=== PATIENT | female | born 1940 | race American Indian/Alaskan Native ===

== ENCOUNTER 2018-08-01 08:12 | Observation (INO) | payer OTHER ==
--- NOTE | 2018-08-01 08:54 | C.PDOC ---
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 SYMPTOMS DEVELOPED ONSET WHILE SLEEPING, PATIENT STATES WORSE WITH LAYING DOWN. PATIENT DESCRIBES CP SHARP. GIVEN "SOMETHING UNDER MY TONGUE" BY EMS WITH MILD IMPROVEMENT. PATIENT STATES NOW FEELS BETTER SITTING UPRIGHT AND WITH O2. PATIENT IS COMPLIANT W "WATER PILLS". DENIES INCREASED SWELLING, FEVER OR ANY OTHER SYMPTOMS AT THIS TIME. EXAM OBESE MILD DIST NONTOXIC LUNGS B/L BASILAR RALES RETRACTION SPEAKING FULL SENTENCES 1+PITTING EDEMA CV RRR REMAINDER NEG Time Seen by Provider: 08/01/18 08:43 Chief Complaint (Nursing): Shortness Of Breath History Per: Patient, EMS History/Exam Limitations: no limitations Onset/Duration Of Symptoms: Hrs Current Symptoms Are (Timing): Still Present Past Medical History Reviewed: Historical Data, Nursing Documentation, Vital Signs Vital Signs: Last Vital Signs Temp 98.9 F 08/01/18 08:38 Pulse 90 08/01/18 08:38 Resp 26 H 08/01/18 08:38 BP 226/108 H 08/01/18 08:38 Pulse Ox 96 08/01/18 08:38 - Medical History PMH: CHF, HTN Surgical History: Pacemaker - [facility] Procedures SKIN INCIS & FB REMOVAL (07/29/99) Family History: States: No Known Family Hx - Social History Hx Alcohol Use: No Hx Substance Use: No Review Of Systems Constitutional: Negative for: Fever, Chills Cardiovascular: Positive for: Chest Pain Respiratory: Positive for: Shortness of Breath. Negative for: Cough Gastrointestinal: Negative for: Nausea, Vomiting Musculoskeletal: Negative for: Leg Pain Skin: Negative for: Rash Physical Exam - Physical Exam Appears: Non-toxic, Other (Obese, In mild distress) Skin: Warm, Dry Head: Atraumatic Eye(s): bilateral: Normal Inspection Oral Mucosa: Moist Neck: Normal ROM, Supple Cardiovascular: Rhythm Regular Respiratory: Rales (bilateral basilar), No Rhonchi, No Wheezing, Other (retractions) Gastrointestinal/Abdominal: Soft, No Tenderness, No Guarding, No Rebound Extremity: Normal ROM, Pedal Edema (+1 pitting), No Calf Tenderness, No Deformity Neurological/Psych: Oriented x3, Normal Speech (speaking in full sentences), Normal Cognition ED Course And Treatment - Laboratory Results Result Diagrams: 08/01/18 09:04 08/01/18 09:04 ECG: Interpreted By Me ECG Rhythm: 1st Degree HB, PVC Rate From EC (BPM) O2 Sat by Pulse Oximetry: 96 (RA) Pulse Ox Interpretation: Normal - Radiology CXR: Interpreted by Me CXR Interpretation: Yes: Other (chf) Progress - Re-Evaluation Re-evaluation Note: 08/01/18 10:30 STABLE ON [address]M. DW DR HOROWITZ WILL ADMIT - Data Reviewed Data Reviewed: Lab, Diagnostic imaging, EKG, Old records - Critical Care Citical Care: Excluding Proc Time Critical Care Time: 90 minutes Disposition Counseled Patient/Family Regarding: Studies Performed, Diagnosis - Disposition Disposition: HOSPITALIZED Disposition Time: 10:31 Condition: STABLE Forms: [facility] (Macedonian) - POA Present On Arrival: None, Poor Glycemic Control - Clinical Impression Clinical Impression: Acute exacerbation of CHF (congestive heart failure) - Scribe Statement The provider has reviewed the documentation as recorded by the Scribe Yanely Guadarrama All medical record entries made by the Scribe were at my direction and pe rsonally dictated by me. I have reviewed the chart and agree that the record accurately reflects my personal performance of the history, physical exam, medical decision making, and the department course for this patient. I have also personally directed, reviewed, and agree with the discharge instructions and disposition.
[2018-08-01] MEDS ORDERED: Aspirin 325 mg EC Tablets PO STA (08:55)
[2018-08-01] MEDS ORDERED: Nitroglycerin 2% Ointment Foilpak UD TOP STA (08:55)
[2018-08-01] MEDS ORDERED: Albuterol 0.083% Inhal Sol (2.5 mg/3 mL) UD INH STA (08:58)
[2018-08-01] MEDS ORDERED: Aspirin 325 mg EC Tablets PO ONE (09:08)
[2018-08-01] MEDS ORDERED: Nitroglycerin 2% Ointment Foilpak UD TOP ONE (09:08)
[2018-08-01 09:12] LABS: BASO % 0.7 % (0.0-2.0); EOS % 0.6 % (0.0-4.0); HEMOGLOBIN 11.9 g/dL (11.0-16.0); LYMPH # 1.3 K/uL (1.0-4.3); MEAN CORPUSCULAR HEMOGLOBIN 31.2 pg (27.0-31.0); MEAN CORPUSCULAR HGB CONC 32.9 g/dL (33.0-37.0); MEAN PLATELET VOLUME 9.6 fL (7.2-11.7); MONO # 0.6 K/uL (0.0-0.8); MONO % 8.7 % (0.0-10.0); NEUT # 4.7 K/uL (1.8-7.0); NRBC % 0.1 % (0.0-2.0); RBC 3.82 Mil/uL (3.80-5.20); RED CELL DISTRIBUTION WIDTH 14.8 % (11.5-14.5); WHITE BLOOD COUNT 6.7 K/uL (4.8-10.8)
[2018-08-01 09:18] LABS: MEAN CELL VOLUME 94.7 fL (81.0-99.0)
[2018-08-01] MEDS ORDERED: Albuterol 0.083% Inhal Sol (2.5 mg/3 mL) UD ONE (09:27)
--- NOTE | 2018-08-01 09:30 | RAD ---
Date of service: 08/01/2018 PROCEDURE: CHEST RADIOGRAPH, 1 VIEW HISTORY: SOB COMPARISON: None available. FINDINGS: LUNGS: There is airspace disease in the right lower lobe. PLEURA: No pneumothorax. Small effusions. CARDIOVASCULAR: The heart is enlarged. There is a lobular opacity superior to the right hilum. There is a left-sided dual lead transvenous permanent pacing device. OSSEOUS STRUCTURES: No significant abnormalities. VISUALIZED UPPER ABDOMEN: Normal. OTHER FINDINGS: None. IMPRESSION: Cardiomegaly and small effusions. Lobular opacity superior to the right hilum is nonspecific and cannot be completely colic tries on this examination. A repeat PA and lateral radiographs are recommended for definitive evaluation.
[2018-08-01 09:31] LABS: ALB/GLOB RATIO 1.2 (1.0-2.1); ALBUMIN 3.8 g/dL (3.5-5.0); CALCIUM 8.9 mg/dl (8.6-10.4)
[2018-08-01 09:40] LABS: TROPONIN I 0.025 ng/mL (0.00-0.120)
[2018-08-01] MEDS: Metoprolol Succinate 50 mg XL Tab PO SCH (12:56)
[2018-08-01] MEDS ORDERED: (Novolin R) Insulin Human Regular 100 units/ml vial SC SCH (13:30)
[2018-08-01 14:04] LABS: PROTHROMBIN TIME 22.1 SECONDS (9.7-12.2)
[2018-08-01] MEDS: (Novolin R) Insulin Human Regular 100 units/ml vial SC SCH ×2 (17:58→21:04)
[2018-08-01] MEDS: Albuterol-Ipratrop 3 mg / 0.5 (3 ml) UD INH SCH (19:14)
[2018-08-01] MEDS: Oxycodone/Acetaminophen 5/325 mg Tab PO PRN (19:34)
--- NOTE | 2018-08-01 22:04 | CP.PCM.HP ---
Past Patient History - Past Medical History & Family History Past Medical History?: Yes - Past Social History Smoking Status: Former Smoker - CARDIAC Hx Congestive Heart Failure: Yes Hx Hypertension: Yes Hx Pacemaker: Yes - NEUROLOGICAL Hx Neurological Disorder: Yes HX Cerebrovascular Accident: Yes (1994) - RENAL Hx Chronic Kidney Disease: No - ENDOCRINE/METABOLIC Hx Endocrine Disorders: Yes Hx Diabetes Mellitus Type 2: Yes - HEMATOLOGICAL/ONCOLOGICAL Hx Blood Disorders: Yes Hx Blood Transfusions: Yes Hx Cancer: Yes (colon, breast) - INTEGUMENTARY Hx Dermatological Problems: No - MUSCULOSKELETAL/RHEUMATOLOGICAL Hx Musculoskeletal Disorders: Yes Hx Falls: Yes Hx Osteoarthritis: Yes - GASTROINTESTINAL Hx Gastrointestinal Disorders: Yes Hx Bowel Surgery: Yes - GENITOURINARY/GYNECOLOGICAL Hx Genitourinary Disorders: No - PSYCHIATRIC Hx Substance Use: No - SURGICAL HISTORY Hx Surgeries: Yes Other/Comment: Pacemaker,colon sx ca, l breast sx cancer. BRAIN SX for aneuyysm - ANESTHESIA Hx Anesthesia: Yes Meds Allergies/Adverse Reactions: Allergies Allergy/AdvReac Type Severity Reaction Status Date / Time No Known Allergies Allergy Verified 06/30/15 07:23 Results - Vital Signs Recent Vital Signs: Last Vital Signs Temp 97.6 F 08/01/18 15:08 Pulse 76 08/01/18 15:08 Resp 18 08/01/18 21:49 BP 170/82 H 08/01/18 15:08 Pulse Ox 98 08/01/18 19:41 - Labs Result Diagrams: 08/01/18 09:04 08/01/18 09:04 Labs: Laboratory Results - last 24 hr 08/01/18 08/01/18 08/01/18 08:26 09:04 09:04 WBC 6.7 RBC 3.82 Hgb 11.9 Hct 36.2 MCV 94.7 D MCH 31.2 H MCHC 32.9 L RDW 14.8 H Plt Count 170 MPV 9.6 Neut % (Auto) 70.0 Lymph % (Auto) 20.0 Schleicher % (Auto) 8.7 Eos % (Auto) 0.6 Baso % (Auto) 0.7 Neut # (Auto) 4.7 Lymph # (Auto) 1.3 Schleicher # (Auto) 0.6 Eos # (Auto) 0.0 Baso # (Auto) 0.0 PT INR Sodium 143 Potassium 4.2 Chloride 108 H Carbon Dioxide 23 Anion Gap 16 BUN 36 H Creatinine 1.2 Est GFR ( Amer) 53 Est GFR (Non-Af Amer) 44 POC Glucose (mg/dL) 136 H Random Glucose 132 H Calcium 8.9 Total Bilirubin 0.7 AST 28 ALT 18 Alkaline Phosphatase 93 Troponin I 0.0250 NT-Pro-B Natriuret Pep 1710 H Total Protein 6.9 Albumin 3.8 Globulin 3.1 Albumin/Globulin Ratio 1.2 08/01/18 08/01/18 08/01/18 11:49 13:42 16:43 WBC RBC Hgb Hct MCV MCH MCHC RDW Plt Count MPV Neut % (Auto) Lymph % (Auto) Schleicher % (Auto) Eos % (Auto) Baso % (Auto) Neut # (Auto) Lymph # (Auto) Schleicher # (Auto) Eos # (Auto) Baso # (Auto) PT 22.1 H INR 2.0 Sodium Potassium Chloride Carbon Dioxide Anion Gap BUN Creatinine Est GFR ( Amer) Est GFR (Non-Af Amer) POC Glucose (mg/dL) 164 H 153 H Random Glucose Calcium Total Bilirubin AST ALT Alkaline Phosphatase Troponin I NT-Pro-B Natriuret Pep Total Protein Albumin Globulin Albumin/Globulin Ratio
[2018-08-02 01:08] VITALS: RESP 20
[2018-08-02 07:01] LABS: CALCIUM 8.7 mg/dl (8.6-10.4)
--- NOTE | 2018-08-02 07:12 | HP ---
CHIEF COMPLAINT: Shortness of breath x3 days. HISTORY OF PRESENT ILLNESS: This is a 77-year-old female, well known to me, with history of coronary artery disease, ischemic heart disease, congestive heart failure with low LV ejection fraction with AICD in place, diabetes, hypertension, morbid obesity, extensive osteoarthritis of shoulders and knees, in her usual state of health. She is wheelchair bound. She is able to ambulate few steps, and she is fully dependent on family members for activities of daily living. She is compliant with diet, medications, and followup. For the last three days, she has been having dyspnea on exertion, orthopnea, and paroxysmal nocturnal dyspnea. She has some dry cough. No fever. No chills. She denies any nausea, vomiting, or diarrhea. She denies any history of polyuria, polydipsia, or polyphagia. She is incontinent of urine. She denies any dysuria. She denies any history of trauma, fall, or loss of consciousness. She has nasal congestion. She denies any itchy eyes, itchy nose, or sneezing. There is no history of chest pain. There is body ache. There is cough. She denies any fever. PAST MEDICAL HISTORY: Congestive heart failure, dilated cardiomyopathy, type 2 diabetes, hypertension, morbid obesity, and osteoarthritis. SOCIAL HISTORY: Nonsmoker, non-EtOH user. CURRENT MEDICATIONS: At home, she takes metformin, Coumadin, Restoril, Aldactone, Pravachol, metoprolol, lactulose, Novolog, glyburide, Lasix, ferrous sulfate, Pepcid, vitamin D, Vasotec, Os-Sukhwinder, anastrozole, amiodarone, and Tylenol with codeine. PHYSICAL EXAMINATION: GENERAL: An elderly female in mild respiratory distress. VITAL SIGNS: Blood pressure , pulse rate of 76, respiratory rate 20, and temperature 97.6. SKIN: She has chronic hyperpigmentation on the face. HEENT: Atraumatic, normocephalic. Negative pallor. Negative jaundice. Extraocular movements are intact. NECK: Supple. Positive JVD. Negative thyromegaly. Negative carotid bruits. CHEST WALL: Bilateral symmetrical expansion. No masses. BREASTS: No masses. LUNGS: Bilateral basal crepitations. Decreased air entry. No rhonchi. CARDIOVASCULAR SYSTEM: S1 and S2 plus S3 positive. 2/6 ejection systolic murmur at the apex. ABDOMEN: Soft, nontender. Bowel sounds are positive. RECTAL: No masses. No bleed. Positive hemorrhoids. EXTREMITIES: +2 pitting edema. CENTRAL NERVOUS SYSTEM: Awake, alert, oriented x3. Cranial nerves II through XII are normal. Power 5/5 x4. Plantars are downgoing. ASSESSMENT: 1. Acute exacerbation of congestive heart failure due to ischemic cardiomyopathy. Most likely, it is due to ongoing ischemia, rule out underlying cardiac arrhythmia. 2. Type 2 diabetes. 3. Morbid obesity. 4. Hypertension. 5. Osteoarthritis. PLAN: Admit. Diuretics. Intake and output daily. Body weight. Monitor the patient. Raul Iverson MD
[2018-08-02] MEDS: (Novolin R) Insulin Human Regular 100 units/ml vial SC SCH ×2 (08:30→12:24)
[2018-08-02] MEDS: Albuterol-Ipratrop 3 mg / 0.5 (3 ml) UD INH SCH ×2 (09:00→13:34)
[2018-08-02] MEDS: Metoprolol Succinate 50 mg XL Tab PO SCH (09:26)
[2018-08-02] MEDS: Oxycodone/Acetaminophen 5/325 mg Tab PO PRN (09:40)
[2018-08-02 16:06] VITALS: TEMP 98.1; O2SAT 96
[2018-08-02 16:44] VITALS: BP 151/80; PULSE 65
--- NOTE | 2018-08-02 17:08 | PCM.HF ---
Heart Failure Core Measure RUBEN Inhibitor Prescribed: Yes Beta-Pako Prescribed: Metoprolol Succinate AnticoagulationTherapy for Atrial Fibrillation/Atrialflutter: Yes
--- NOTE | 2018-08-02 17:11 | CP.PCM.PN ---
Objective - Vital Signs/Intake and Output Vital Signs (last 24 hours): Temp Pulse Resp BP Pulse Ox 98.1 F 65 20 151/80 H 96 08/02/18 15:45 08/02/18 16:43 08/02/18 16:43 08/02/18 16:43 08/02/18 15:45 Intake and Output: 08/02/18 08/02/18 06:59 18:59 Output Total 350 Balance -350 - Labs Labs: 08/01/18 09:04 08/02/18 06:34 PT 22.1 SECONDS (9.7-12.2) H 08/01/18 13:42 INR 2.0 08/01/18 13:42 Assessment and Plan - Assessment and Plan (Free Text) Assessment: 77 year old female admitted with CHF exacerbation, seen and examined. Alert and orientedx3, little nauseated from the percocet taken this am. Out ob bed on the chair, no acute distress.
--- NOTE | 2018-08-03 06:03 | DS ---
ADMISSION DIAGNOSIS: Exacerbation of congestive heart failure. DISCHARGE DIAGNOSES: Acute exacerbation of congestive heart failure, hypertension, hyperlipidemia, type 2 diabetes, and osteoarthritis of the shoulders. HISTORY OF PRESENT ILLNESS: This is a 77-year-old -[place] female with a history of hypertension, hyperlipidemia, coronary artery disease, congestive heart failure with dilated ischemic cardiomyopathy, compliant with diet, medication, and followup. She has AICD in place. She has been followed up by Cardiology and the patient came to the emergency room because of 2 to 3 days' onset of dyspnea on exertion. She had orthopnea and PND. The patient was found to have acute congestive heart failure. She was admitted to the floor, started on diuretics, intake, output, daily body weight, resumed her home medications, and Lasix was given. The patient's chest is clear now she is feeling better. She is being discharged with outpatient followup. CONDITION UPON DISCHARGE: Stable. PHYSICAL EXAMINATION: VITAL SIGNS: Blood pressure 151/80, pulse 65, respiratory rate 20, temperature 98.1. LUNGS: Bilateral basal rales. CARDIOVASCULAR SYSTEM: S1 and S2, regular. ABDOMEN: Soft. DISCHARGE DIAGNOSES: Exacerbation of congestive heart failure, type 2 diabetes, hypertension. Raul Iverson MD
--- NOTE | 2018-08-03 07:45 | CARD ---
APPROVED REPORT Date of service: 08/02/2018 EXAM: Two-dimensional and M-mode echocardiogram with Doppler and color Doppler. Other Information Quality : AverageRhythm : INDICATION Dyspnea Chest Pain Congestive Heart Failure Surgery/Intervention ICD/Pacemaker: RISK FACTORS Hypertension Obesity 2D DIMENSIONS IVSd1.3 (0.7-1.1cm)Aortic Root (2D)3.1 (2.0-3.7cm) LVDd7.2 (3.9-5.9cm)PWd1.0 (0.7-1.1cm) LA Szqrit44 (18-58mL)LVDs5.3 (2.5-4.0cm) FS (%) 22.0 %LVEF (%)49.4 (>50%) LVEF (Verdin's)51 %IVC0.00 cm M-Mode DIMENSIONS Left Atrium (MM)3.59 (2.5-4.0cm)IVSd0.94 (0.7-1.1cm) Aortic Root3.05 (2.2-3.7cm)LVDd6.68 (4.0-5.6cm) Aortic Cusp Exc.1.37 (1.5-2.0cm)PWd1.29 (0.7-1.1cm) FS (%) 25 %LVDs5.04 (2.0-3.8cm) LVEF (%)50 (>50%) Mitral Valve MV E Yrajaxsh43.7cm/sMV A Fbbpdilb74.7cm/sE/A ratio0.9 TDI Lateral E' Peak V6.09cm/sMedial E' Peak V8.80cm/sE/Lateral E'15.2 E/Medial E'10.5 Tricuspid Valve TR Peak Uyxbcbmi415ul/sTR Peak Gr.[id number] <Conclusion> Suboptimal study Left ventricle: thickness: normal; size: dilated; overall ejection fraction: 35%: Obtain a MUGA scan for accurate LVEF diastolic filling pressures:elevated Mitral valve: annulus:MAC: leaflets: normal: excursion: normal; no significant trans-mitral gradient: mild incompetence: left atrium: normal Aortic valve: leaflets: mild calcific thickening: excursion: normal; no significant trans-aortic gradient: No significant incompetence: aortic root: normal Right sided Structures: pacing lead notedPulmonary valve: normal; no significant incompetence; Tricuspid valve: normal; no significant incompetence: Intra-cardiac hemodynamics: pulmonary systolic pressures: normal; central venous pressures: normal No pericardial effusion
--- NOTE | 2018-08-03 08:43 | CARD ---
APPROVED REPORT Date of service: 08/01/2018 EKG Measurement Heart [id number] <Conclusion> Sinus rhythm with 1st degree AV block with premature atrial complexes with aberrant conduction Otherwise normal ECG
[2018-08-03] MEDS ORDERED: Influenza Vaccine 60 MCG/0.5 ML SYR (3 yr & up) IM ONE (10:00)
[2018-08-03] MEDS ORDERED: Pneumococcal 23-Valent Vaccine IM ONE (10:00)
== END 2018-08-02 17:03 | disposition home or self-care (01) ==
LOC: C.ER 08:12 → C.6T 10:31
PROVIDERS: ADMIT Internal Medicine; ATTEND Internal Medicine
DX: I11.0 Hypertensive heart disease with heart failure (principal); I25.5 Ischemic cardiomyopathy; E66.01 Morbid (severe) obesity due to excess calories; E11.9 Type 2 diabetes mellitus without complications; I25.10 Atherosclerotic heart disease of native coronary artery without angina pectoris; I50.9 Heart failure, unspecified; J44.9 Chronic obstructive pulmonary disease, unspecified; Z86.73 Personal history of transient ischemic attack (TIA), and cerebral infarction without residual deficits; Z87.891 Personal history of nicotine dependence; Z95.0 Presence of cardiac pacemaker; R32 Unspecified urinary incontinence; E78.5 Hyperlipidemia, unspecified; M19.012 Primary osteoarthritis, left shoulder; M19.011 Primary osteoarthritis, right shoulder
CPT/HCPCS: 36415; 71045; 80048; 80053; 82948; 83880; 84484; 85025; 85610; 93306; 94640; 94660; 96374; 97116; 97162; 97166; 97530; 99285; G0378; G8978; G8980; G8987; G8988; J0696; J1940; J2405

== ENCOUNTER 2018-11-06 10:02 | Inpatient (IN) | payer OTHER ==
--- NOTE | 2018-11-06 10:54 | C.PDOC ---
History Of Present Illness 78 year old female with PMHx of CHF presents to the ED complaining of shoulder pain radiating to neck and arms. Reports the pain has been intermittent for several years, bu states pain is worse since last several days. Patient sts she has an appointment scheduled for this week with Dr. Iverson but she was unable to wait for the appointment because of the pain. Pt admits to some shortness of breath, denies fever, chills, n/v/d, weakness, numbness, or tingling. Time Seen by Provider: 11/06/18 10:32 Chief Complaint (Nursing): Upper Extremity Problem/Injury History Per: Patient History/Exam Limitations: no limitations Onset/Duration Of Symptoms: Days, Intermittent Episodes Current Symptoms Are (Timing): Still Present Quality: "Pain" Past Medical History Reviewed: Historical Data, Nursing Documentation, Vital Signs Vital Signs: Last Vital Signs Temp 99.1 F 11/06/18 10:12 Pulse 88 11/06/18 10:12 Resp 18 11/06/18 10:12 BP 168/82 H 11/06/18 10:12 Pulse Ox 99 11/06/18 10:12 - Medical History PMH: CHF, HTN Denies: Chronic Kidney Disease Surgical History: Pacemaker - [facility] Procedures SKIN INCIS & FB REMOVAL (07/29/99) Family History: States: No Known Family Hx - Social History Hx Alcohol Use: No Hx Substance Use: No Review Of Systems Except As Marked, All Systems Reviewed And Found Negative. Constitutional: Negative for: Fever, Chills Respiratory: Negative for: Shortness of Breath Gastrointestinal: Negative for: Nausea, Vomiting, Abdominal Pain, Diarrhea Musculoskeletal: Positive for: Neck Pain, Shoulder Pain (b/l), Arm Pain (b/l) Neurological: Negative for: Weakness, Numbness Physical Exam - Physical Exam Appears: Non-toxic, No Acute Distress, Other (dry heaving ) Skin: Warm, Dry Head: Normacephalic Eye(s): bilateral: Normal Inspection Nose: Normal Neck: Normal ROM, Supple Chest: Tenderness (diffused ) Cardiovascular: Rhythm Regular Respiratory: Normal Breath Sounds, No Rales, No Rhonchi, No Wheezing Gastrointestinal/Abdominal: Soft, No Tenderness Back: Paraspinal Tenderness Extremity: Normal ROM, Tenderness (diffused tenderness to shoulder and arms. ), Pedal Edema, No Deformity, No Swelling Extremity: Bilateral: Atraumatic, Normal Color And Temperature, Normal ROM Neurological/Psych: Oriented x3, Normal Speech, Normal Cognition, Normal Motor, Normal Sensation Gait: Steady ED Course And Treatment - Laboratory Results Result Diagrams: 11/06/18 12:03 11/06/18 12:03 ECG Rhythm: Sinus Rhythm, 1st Degree HB, Nonspecific Changes Rate From EC O2 Sat by Pulse Oximetry: 99 (RA) Pulse Ox Interpretation: Normal - Other Rad CXR X-Ray: Viewed By Me, Read By Radiologist Interpretation: Accession No. : [id number]. Patient Name / ID : MIGUE Irwin / [id number]. Exam Date : 11/06/2018 10:59:53 ( Approved ). Study Comment : Sex / Age : F / 78Y. Creator : Madison Long MD. Dictator : Madison Long MD. Folder Inspector : Rehab/Pre Vocational Counselor : Madison Long MD. Approver2 : Report Date : 11/06/2018 11:56:07. My Comment : . Date of service: 11/06/2018. PROCEDURE: CHEST RADIOGRAPH, 1 VIEW. HISTORY: SOB. COMPARISON: 08/01/2018. FINDINGS: LUNGS: The lungs are well inflated. There is mild pulmonary venous congestion. There is interval development of triangular consolidation in the right upper lobe. PLEURA: No pneumothorax or pleural effusion. CARDIOVASCULAR: Persistent severe cardiomegaly. There is stable position of left-sided dual lead permanent pacing device. There are aortic atherosclerotic calcifications present. OSSEOUS STRUCTURES: Within normal limits for the patient's age. VISUALIZED UPPER ABDOMEN: Normal. OTHER FINDINGS: None. IMPRESSION: Interval development of right upper lobe pneumonia. Follow-up after medical management is recommended to ensure complete resolution. The final report is tagged to the PA review folder. - CT Scan/US CT Chest Other Rad Studies (CT/US): Read By Radiologist, Radiology Report Reviewed CT/US Interpretation: Accession No. : [id number]. Patient Name / ID : MIGUE LLOYD / [id number]. Exam Date : 11/06/2018 14:32:14 ( Approved ). Study Comment : Sex / Age : F / 78Y. Creator : Madison Long MD. Dictator : Madison Long MD. Folder Inspector : Rehab/Pre Vocational Counselor : Madison Long MD. Approver2 : Report Date : 11/06/2018 15:09:34. My Comment : . Date of service: 11/06/2018. PROCEDURE: CT Chest without contrast. HISTORY: RUL infiltrate vs mass. COMPARISON: None available. TECHNIQUE: Contiguous axial images were obtained through the chest without intravenous contrast enhancement. Sagittal and coronal reconstructions were performed. . Radiation dose: Total exam DLP = 1345.28 mGy-cm. This CT exam was performed using one or more of the following dose reduction techniques: Automated exposure control, adjustment of the mA and/or kV according to patient size, and/or use of iterative reconstruction technique. FINDINGS: LUNGS: The lungs are well inflated. There is a 3.5 x 3.6 cm subpleural lobular mass in the posterior segment of the right upper lobe. There is a 2nd smaller area of consolidation in the right lung base. There is a 1.9 cm calcified nodule in the left lung base. There is patchy ground-glass attenuation in the lungs. There is mild scattered centrilobular emphysema. There are no endobronchial lesions. MEDIASTINUM: Mild aneurysmal dilatation of the ascending aorta. Moderate cardiomegaly. Advanced atherosclerotic coronary artery calcifications. Evaluation of hilar lymphadenopathy is limited on noncontrast CT examination. No pathologic mediastinal lymphadenopathy.. No aortic atherosclerotic ca lcification. PLEURA: No pleural fluid. No pneumothorax. BONES: No fracture. No destructive lesion. UPPER ABDOMEN: Both adrenal glands are normal. There are small nonobstructing stones in the lower pole of the left kidney. There is a small sliding hiatal hernia. OTHER FINDINGS: An IVC filter remains in place. There is a multinodular thyroid gland. IMPRESSION: 3.5 x 3.6 cm lobular mass in the posterior segment of the right upper lobe. The differential considerations include neoplasm and dense masslike consolidation. Correlation with PET-CT/histopathologic correlation biopsy is recommended. Evaluation of hilar lymphadenopathy is limited on noncontrast CT examination. No pathologic mediastinal lymphadenopathy. Smaller area of consolidation in the right lung base may represent subsegmental atelectasis or nonspecific pneumonia. Follow-up after medical management is recommended to ensure complete resolution. Moderate cardiomegaly. Progress Note: EKG, CT-chest and CXR ordered. Blood and urine collected and sent to the lab for analysis. Patient treated with Morphine. Right upper lobe mass versus infiltrate confimed by CT scan. Started on Rocephin. Spoke with Dr. Iverson. Accepts patient to Telemetry for observation. Disposition - Disposition Disposition: HOSPITALIZED Disposition Time: 16:07 Condition: FAIR - Clinical Impression Clinical Impression: Shoulder pain, bilateral, Pulmonary mass, Congestive heart failure (CHF) - PA / CHIEF POWER DISPATCHER / Resident Statement MD/DO has reviewed & agrees with the documentation as recorded. - Scribe Statement The provider has reviewed the documentation as recorded by the Scribe Latoya Mcnally All medical record entries made by the Aureliaibdon were at my direction and personally dictated by me. I have reviewed the chart and agree that the record accurately reflects my personal performance of the history, physical exam, medical decision making, and the department course for this patient. I have also personally directed, reviewed, and agree with the discharge instructions and disposition. Decision To Admit - Pt Status Changed To: Hospital Disposition Of: Observation - . Bed Request Type: Telemetry Admitting Physician: Raul Iverson Patient Diagnosis: Shoulder pain, bilateral, Pulmonary mass, Congestive heart failure (CHF)
--- NOTE | 2018-11-06 12:00 | RAD ---
Date of service: 11/06/2018 PROCEDURE: CHEST RADIOGRAPH, 1 VIEW HISTORY: SOB COMPARISON: 08/01/2018 FINDINGS: LUNGS: The lungs are well inflated. There is mild pulmonary venous congestion. There is interval development of triangular consolidation in the right upper lobe. PLEURA: No pneumothorax or pleural effusion. CARDIOVASCULAR: Persistent severe cardiomegaly. There is stable position of left-sided dual lead permanent pacing device. There are aortic atherosclerotic calcifications present. OSSEOUS STRUCTURES: Within normal limits for the patient's age. VISUALIZED UPPER ABDOMEN: Normal. OTHER FINDINGS: None. IMPRESSION: Interval development of right upper lobe pneumonia. Follow-up after medical management is recommended to ensure complete resolution. The final report is tagged to the PA review folder.
[2018-11-06 12:07] LABS: BASO # 0.1 K/uL (0.0-0.2); EOS % 0.4 % (0.0-4.0); LYMPH # 1.2 K/uL (1.0-4.3); MEAN CELL VOLUME 95.1 fL (81.0-99.0); MEAN CORPUSCULAR HGB CONC 32.7 g/dL (33.0-37.0); MEAN PLATELET VOLUME 8.5 fL (7.2-11.7); MONO # 0.9 K/uL (0.0-0.8); MONO % 10.4 % (0.0-10.0); NEUT # 6.1 K/uL (1.8-7.0); NEUT % 73.2 % (50.0-75.0); RBC 3.88 Mil/uL (3.80-5.20); RED CELL DISTRIBUTION WIDTH 15.7 % (11.5-14.5); WHITE BLOOD COUNT 8.3 K/uL (4.8-10.8)
[2018-11-06] MEDS ORDERED: Morphine 4 MG/ML VIAL ONE ×2 (12:13→16:11)
[2018-11-06 12:16] LABS: PARTIAL THROMBOPLASTIN TIME 48 SECONDS (21-34)
[2018-11-06 12:20] LABS: ALB/GLOB RATIO 1.3 (1.0-2.1); CALCIUM 8.9 mg/dl (8.6-10.4)
[2018-11-06 12:21] LABS: D DIMER < 200 ng/mlDDU (0-243); INR 3.7
[2018-11-06 12:32] LABS: CK-MB 0.45 ng/mL (0.0-3.38); TROPONIN I 0.025 ng/mL (0.00-0.120)
--- NOTE | 2018-11-06 15:13 | CT ---
Date of service: 11/06/2018 PROCEDURE: CT Chest without contrast HISTORY: RUL infiltrate vs mass COMPARISON: None available. TECHNIQUE: Contiguous axial images were obtained through the chest without intravenous contrast enhancement. Sagittal and coronal reconstructions were performed. Radiation dose: Total exam DLP = 1345.28 mGy-cm. This CT exam was performed using one or more of the following dose reduction techniques: Automated exposure control, adjustment of the mA and/or kV according to patient size, and/or use of iterative reconstruction technique. FINDINGS: LUNGS: The lungs are well inflated. There is a 3.5 x 3.6 cm subpleural lobular mass in the posterior segment of the right upper lobe. There is a 2nd smaller area of consolidation in the right lung base. There is a 1.9 cm calcified nodule in the left lung base. There is patchy ground-glass attenuation in the lungs. There is mild scattered centrilobular emphysema. There are no endobronchial lesions. MEDIASTINUM: Mild aneurysmal dilatation of the ascending aorta. Moderate cardiomegaly. Advanced atherosclerotic coronary artery calcifications. Evaluation of hilar lymphadenopathy is limited on noncontrast CT examination. No pathologic mediastinal lymphadenopathy.. No aortic atherosclerotic calcification. PLEURA: No pleural fluid. No pneumothorax. BONES: No fracture. No destructive lesion. UPPER ABDOMEN: Both adrenal glands are normal. There are small nonobstructing stones in the lower pole of the left kidney. There is a small sliding hiatal hernia. OTHER FINDINGS: An IVC filter remains in place. There is a multinodular thyroid gland. IMPRESSION: 3.5 x 3.6 cm lobular mass in the posterior segment of the right upper lobe. The differential considerations include neoplasm and dense masslike consolidation. Correlation with PET-CT/histopathologic correlation biopsy is recommended. Evaluation of hilar lymphadenopathy is limited on noncontrast CT examination. No pathologic mediastinal lymphadenopathy. Smaller area of consolidation in the right lung base may represent subsegmental atelectasis or nonspecific pneumonia. Follow-up after medical management is recommended to ensure complete resolution. Moderate cardiomegaly.
[2018-11-06 15:20] LABS: SQUAMOUS EPITHIAL 4 /hpf (0-5); URINE BACTERIA RARE (<OCC); URINE BILIRUBIN NEGATIVE (NEGATIVE); URINE BLOOD NEGATIVE (NEGATIVE); URINE CLARITY Clear (Clear); URINE COLOR Yellow (YELLOW); URINE GLUCOSE (UA) NORMAL (Normal); URINE LEUKOCYTE ESTERASE TRACE Leu/uL (Negative); URINE PROTEIN NEGATIVE (NEGATIVE); URINE UROBILINOGEN NORMAL mg/dL (0.2-1.0)
[2018-11-06] MEDS: guaiFENesin 600 mg ER Tab PO SCH (20:36)
--- NOTE | 2018-11-06 22:23 | CP.PCM.HP ---
Past Patient History - Infectious Disease Hx of Infectious Diseases: None - Past Medical History & Family History Past Medical History?: Yes - Past Social History Smoking Status: Former Smoker - CARDIAC Hx Congestive Heart Failure: Yes Hx Hypertension: Yes Hx Pacemaker: Yes - NEUROLOGICAL Hx Neurological Disorder: Yes HX Cerebrovascular Accident: Yes (1994) - RENAL Hx Chronic Kidney Disease: No - ENDOCRINE/METABOLIC Hx Endocrine Disorders: Yes Hx Diabetes Mellitus Type 2: Yes - HEMATOLOGICAL/ONCOLOGICAL Hx Blood Disorders: Yes Hx Blood Transfusions: Yes Hx Cancer: Yes (colon, breast) - INTEGUMENTARY Hx Dermatological Problems: No - MUSCULOSKELETAL/RHEUMATOLOGICAL Hx Musculoskeletal Disorders: Yes Hx Falls: Yes Hx Osteoarthritis: Yes - GASTROINTESTINAL Hx Gastrointestinal Disorders: Yes Hx Bowel Surgery: Yes - GENITOURINARY/GYNECOLOGICAL Hx Genitourinary Disorders: No - PSYCHIATRIC Hx Substance Use: No - SURGICAL HISTORY Hx Surgeries: Yes Other/Comment: Pacemaker,colon sx ca, l breast sx cancer. BRAIN SX for aneuyysm - ANESTHESIA Hx Anesthesia: Yes Meds Allergies/Adverse Reactions: Allergies Allergy/AdvReac Type Severity Reaction Status Date / Time No Known Allergies Allergy Verified 11/06/18 10:15 Results - Vital Signs Recent Vital Signs: Last Vital Signs Temp 99.1 F 11/06/18 10:12 Pulse 63 11/06/18 17:42 Resp 19 11/06/18 17:42 BP 127/51 L 11/06/18 17:42 Pulse Ox 99 11/06/18 18:19 - Labs Result Diagrams: 11/06/18 12:03 11/06/18 12:03 Labs: Laboratory Results - last 24 hr 11/06/18 11/06/18 11/06/18 12:03 12:03 12:03 WBC 8.3 RBC 3.88 Hgb 12.0 Hct 36.9 MCV 95.1 MCH 31.0 MCHC 32.7 L RDW 15.7 H Plt Count 182 MPV 8.5 Neut % (Auto) 73.2 Lymph % (Auto) 15.0 L [place] % (Auto) 10.4 H Eos % (Auto) 0.4 Baso % (Auto) 1.0 Neut # (Auto) 6.1 Lymph # (Auto) 1.2 [place] # (Auto) 0.9 H Eos # (Auto) 0.0 Baso # (Auto) 0.1 PT 41.0 H INR 3.7 H* APTT 48 H D-Dimer, Quantitative < 200 Sodium 139 Potassium 4.8 Chloride 110 H Carbon Dioxide 22 Anion Gap 12 BUN 31 H Creatinine 1.3 H Est GFR ( Amer) 48 Est GFR (Non-Af Amer) 40 Random Glucose 169 H D Calcium 8.9 Magnesium 2.2 Total Bilirubin 0.6 AST 18 ALT 33 Alkaline Phosphatase 96 Total Creatine Kinase 37 CK-MB (Mass) 0.45 Troponin I 0.0250 NT-Pro-B Natriuret Pep 1920 H Total Protein 7.2 Albumin 4.0 Globulin 3.1 Albumin/Globulin Ratio 1.3 Urine Color Urine Clarity Urine pH Ur Specific [place] Urine Protein Urine Glucose (UA) Urine Ketones Urine Blood Urine Nitrate Urine Bilirubin Urine Urobilinogen Ur Leukocyte Esterase Urine WBC (Auto) Urine RBC (Auto) Ur Squamous Epith Cells Urine Bacteria Hyaline Casts 11/06/18 15:09 WBC RBC Hgb Hct MCV MCH MCHC RDW Plt Count MPV Neut % (Auto) Lymph % (Auto) [place] % (Auto) Eos % (Auto) Baso % (Auto) Neut # (Auto) Lymph # (Auto) [place] # (Auto) Eos # (Auto) Baso # (Auto) PT INR APTT D-Dimer, Quantitative Sodium Potassium Chloride Carbon Dioxide Anion Gap BUN Creatinine Est GFR ( Amer) Est GFR (Non-Af Amer) Random Glucose Calcium Magnesium Total Bilirubin AST ALT Alkaline Phosphatase Total Creatine Kinase CK-MB (Mass) Troponin I NT-Pro-B Natriuret Pep Total Protein Albumin Globulin Albumin/Globulin Ratio Urine Color Yellow Urine Clarity Clear Urine pH 5.0 Ur Specific [place] 1.009 Urine Protein Negative Urine Glucose (UA) Normal Urine Ketones Negative Urine Blood Negative Urine Nitrate Negative Urine Bilirubin Negative Urine Urobilinogen Normal Ur Leukocyte Esterase Trace Urine WBC (Auto) 6 H Urine RBC (Auto) 1 Ur Squamous Epith Cells 4 Urine Bacteria Rare Hyaline Casts 11-20 H
[2018-11-07] MEDS: Acetaminophen-Codeine 300/30 mg Tab PO PRN ×2 (05:56→17:42)
[2018-11-07] MEDS: (Novolog) Insulin Aspart, Recombinant 100 u/ml 10 ml vial SC SCH ×4 (08:18→21:43)
--- NOTE | 2018-11-07 09:07 | HP ---
CHIEF COMPLAINT: Shoulder pain times several months. HISTORY OF PRESENT ILLNESS: This is a 78-year-old -[place] female, well known to me with history of chronic systolic heart failure with the ICD in place, being followed up by Cardiology who is on multiple medications. She is morbidly obese with type 2 diabetes, hypertension, hyperlipidemia, mild renal insufficiency who is compliant with diet, medications, and followup. She has chronic osteoarthritic pain in both shoulders, knees, back, hip, wrist, and hand; and the patient came in because of bilateral shoulder pain, but according to the patient for almost 10 days, she is also having cough, congestion, and yellow thick sputum production. She has fever, chills, and rigors. She has body aches, tiredness, anorexia, malaise, and fatigue. She denies any hemoptysis. She denies any hematemesis, melena, or hematochezia. She denies any polyuria, polydipsia, or polyphagia. She denies any hematuria or pyuria. She denies any sneezing or itchy eyes. She denies any dyspnea at rest, but she gets dyspnea on exertion, which is her baseline. She denies any fevers or chills. She has tingling, numbness, and paresthesias in the feet. She denies any history of trauma, fall, or loss of consciousness. She denies any seizure like activity. PAST MEDICAL HISTORY: Type 2 diabetes, hypertension, hyperlipidemia, osteoarthritis, congestive heart failure, coronary artery disease, chronic vertigo, cardiac arrhythmia, and atrial fibrillation. CURRENT MEDICATIONS: She is on metformin, Coumadin, Restoril, Aldactone, Pravachol, Toprol-XL, lactulose, NovoLog, glyburide, Lasix, and vitamin D. She is taking Zestoretic, and she is also on Tylenol with Codeine. PHYSICAL EXAMINATION: GENERAL: An elderly female, in distress with shoulder pain. VITAL SIGNS: Blood pressure 127/51, pulse 63, respiratory rate 19, and temperature 98. SKIN: The patient has hyperpigmentation on the face and multiple parts of the body, they are all wade. No bruises, no purpura, no petechia, no ecchymosis. HEENT: Atraumatic and normocephalic. Negative pallor. Negative jaundice. Extraocular movements are intact. NECK: Supple. No JVD. No lymph node. No thyromegaly. No carotid bruit. CHEST WALL: Bilateral symmetrical expansion. LUNGS: Clear. No rales. No rhonchi. CARDIOVASCULAR SYSTEM: PMI not localized. S1 and S2, regular. No heaves, no thrill. ABDOMEN: Soft, nontender. Bowel sounds are positive. EXTREMITIES: No clubbing, cyanosis, or edema. CENTRAL NERVOUS SYSTEM: Awake, alert, oriented x3. Cranial nerves II through XII are normal. Power 5/5 x4. Plantars are downgoing. ASSESSMENT: 1. Pneumonia, rule out right upper lobe mass. 2. Hypertension. 3. Congestive heart failure. 4. Type 2 diabetes. PLAN: Admit. Detailed orders are written. Seen and examined. Raul Iverson MD
[2018-11-07] MEDS: guaiFENesin 600 mg ER Tab PO SCH ×2 (09:17→17:36)
[2018-11-07] MEDS: Metoprolol Succinate 50 mg XL Tab PO SCH (09:18)
[2018-11-07] MEDS: metFORMIN 250 mg Tab PO SCH (09:31)
[2018-11-07 12:17] LABS: INR 5.5; PROTHROMBIN TIME 60.8 SECONDS (9.7-12.2)
--- NOTE | 2018-11-07 13:05 | CP.PCM.CON ---
<Omar Leggett - Last Filed: 11/07/18 17:40> History of Present Illness - History of Present Illness History of Present Illness: 78 year old female with a past medical history of cerebral aneurysm, hypertension, diabetes, hypercholesterolemia, iron deficiency, and gastritis presents to the hospital with complaints of shoulder pain radiating to neck and arms. Reports the pain has been intermittent for several years, but states pain is worse since last several days. Patient denies any other alleviating or modifying factors. Patient denies any numbness or tingling in her extremieties, nausea, vomtiing, chest pain, shortness of breath, or any other complaints. PMD: Dr. Iverson Medical history: Cerebral anuerysm, hypertension, dm, cholesterolemia, iron deficiency, gastritis Allergies: No known allergies Surgical history:s/p ICD placement Social history:Denies alcohol and tobacco use. Review of Systems - Constitutional Constitutional: absent: Chills, Frequent Falls, Headache, Night Sweats, Weakness - EENT Eyes: absent: Discharge, Loss of Peripheral Vision, Sees Flashes, Loss of Vision Nose/Mouth/Throat: absent: Nasal Congestion, Bleeding Gums, Dysphagia, Mouth Pain - Breasts Breasts: absent: Change in Shape, Mass, Swelling - Cardiovascular Cardiovascular: absent: Chest Pain, Claudication, Irregular Heart Rhythm, Syncope - Respiratory Respiratory: absent: Dyspnea - Gastrointestinal Gastrointestinal: absent: Belching, Change in Stool Character, Diarrhea, Loose Stools - Genitourinary Genitourinary: absent: Pyuria, Nocturia, Urinary Urgency, Other - Musculoskeletal Musculoskeletal: absent: Arthralgias, Limited Range of Motion, Myalgias - Integumentary Integumentary: absent: Alopecia, Bleeding Lesions - Neurological Neurological: absent: Numbness, Lack of Coordination, Radicular Pain - Endocrine Endocrine: absent: Polydipsia, Polyphagia, Polyuria - Hematologic/Lymphatic Hematologic: absent: Easy Bleeding, Easy Bruising Past Patient History - Infectious Disease Hx of Infectious Diseases: None - Past Medical History & Family History Past Medical History?: Yes - Past Social History Smoking Status: Former Smoker - CARDIAC Hx Congestive Heart Failure: Yes Hx Hypertension: Yes Hx Pacemaker: Yes - NEUROLOGICAL Hx Neurological Disorder: Yes HX Cerebrovascular Accident: Yes (1994) - RENAL Hx Chronic Kidney Disease: No - ENDOCRINE/METABOLIC Hx Endocrine Disorders: Yes Hx Diabetes Mellitus Type 2: Yes - HEMATOLOGICAL/ONCOLOGICAL Hx Blood Disorders: Yes Hx Blood Transfusions: Yes Hx Cancer: Yes (colon, breast) - INTEGUMENTARY Hx Dermatological Problems: No - MUSCULOSKELETAL/RHEUMATOLOGICAL Hx Musculoskeletal Disorders: Yes Hx Falls: Yes Hx Osteoarthritis: Yes - GASTROINTESTINAL Hx Gastrointestinal Disorders: Yes Hx Bowel Surgery: Yes - GENITOURINARY/GYNECOLOGICAL Hx Genitourinary Disorders: No - PSYCHIATRIC Hx Substance Use: No - SURGICAL HISTORY Hx Surgeries: Yes Other/Comment: Pacemaker,colon sx ca, l breast sx cancer. BRAIN SX for aneuyysm - ANESTHESIA Hx Anesthesia: Yes Meds Allergies/Adverse Reactions: Allergies Allergy/AdvReac Type Severity Reaction Status Date / Time No Known Allergies Allergy Verified 11/06/18 10:15 - Medications Medications: Current Medications Acetaminophen/Codeine Phosphate (Tylenol/Codeine 300 Mg/30 Mg) 2 ea PO Q4 PRN PRN Reason: Pain, moderate (4-7) Last Admin: 11/07/18 05:56 Dose: 2 ea Albuterol/Ipratropium (Duoneb 3 Mg/0.5 Mg (3 Ml) Ud) 3 ml INH RQ6 ON LICENSE OF [facility] Amiodarone HCl (Cordarone) 200 mg PO DAILY ON LICENSE OF [facility] Last Admin: 11/07/18 09:18 Dose: 200 mg Calcium Carbonate (Oscal) 500 mg PO BID ON LICENSE OF [facility] Last Admin: 11/07/18 09:18 Dose: 500 mg Enalapril Maleate (Vasotec) 10 mg PO DAILY ON LICENSE OF [facility] Last Admin: 11/07/18 09:18 Dose: 10 mg Furosemide (Lasix) 40 mg PO DAILY ON LICENSE OF [facility] Last Admin: 11/07/18 09:23 Dose: 40 mg Glyburide (Micronase) 1.25 mg PO DAILY ON LICENSE OF [facility] Last Admin: 11/07/18 10:45 Dose: 1.25 mg Guaifenesin (Mucinex La) 600 mg PO BID ON LICENSE OF [facility] Last Admin: 11/07/18 09:17 Dose: 600 mg Guaifenesin (Robitussin) 200 mg PO Q4H PRN PRN Reason: Cough and congestion Hydrochlorothiazide (Microzide) 12.5 mg PO DAILY ON LICENSE OF [facility] Last Admin: 11/07/18 09:17 Dose: 12.5 mg Ceftriaxone Sodium 1 gm/ (Sodium Chloride) 100 mls @ 100 mls/hr IVPB DAILY ON LICENSE OF [facility]; Protocol Last Admin: 11/07/18 09:15 Dose: 100 mls/hr Influenza Virus Vaccine (Flucelvax Quad [id number] Syr) 60 mcg IM .ONCE ONE Stop: 11/10/18 10:01 Insulin Aspart (Novolog) 0 unit SC ACHS ON LICENSE OF [facility]; Protocol Last Admin: 11/07/18 12:40 Dose: 1 u Lactulose (Enulose) 20 gm PO HS PRN PRN Reason: Constipation Metformin HCl (Glucophage) 250 mg PO DAILY ON LICENSE OF [facility] Last Admin: 11/07/18 09:31 Dose: 250 mg Metoprolol Succinate (Toprol Xl) 50 mg PO DAILY ON LICENSE OF [facility] Last Admin: 11/07/18 09:18 Dose: 50 mg Pneumococcal Polyvalent Vaccine (Pneumovax 23 Vaccine) 0.5 ml IM .ONCE ONE Stop: 11/10/18 10:01 Rosuvastatin Calcium (Crestor) 5 mg PO HS ON LICENSE OF [facility] Spironolactone (Aldactone) 25 mg PO DAILY ON LICENSE OF [facility] Last Admin: 11/07/18 09:17 Dose: 25 mg Temazepam (Restoril) 15 mg PO HS PRN PRN Reason: Insomnia Physical Exam - Head Exam Head Exam: ATRAUMATIC, NORMAL INSPECTION, NORMOCEPHALIC - Eye Exam Eye Exam: EOMI, Normal appearance, PERRL Pupil Exam: NORMAL ACCOMODATION. absent: Irregular, PERRL - ENT Exam ENT Exam: Mucous Membranes Moist, Normal Oropharynx - Respiratory Exam Respiratory Exam: Clear to Auscultation Bilateral, NORMAL BREATHING PATTERN. absent: Prolonged Expiratory Phase, Respiratory Distress - Cardiovascular Exam Cardiovascular Exam: REGULAR RHYTHM, +S1, +S2 - GI/Abdominal Exam GI & Abdominal Exam: Normal Bowel Sounds, Soft. absent: Tenderness - Extremities Exam Extremities exam: Positive for: normal inspection. Negative for: full ROM, pedal edema - Neurological Exam Neurological exam: Alert, CN II-XII Intact, Oriented x3 - Psychiatric Exam Psychiatric exam: Anxious, Normal Mood - Skin Skin Exam: Dry, Normal Color, Warm Results - Vital Signs Recent Vital Signs: Last Vital Signs Temp 98.4 F 11/07/18 07:00 Pulse 60 11/07/18 08:20 Resp 18 11/07/18 07:00 BP 127/68 11/07/18 09:23 Pulse Ox 100 11/07/18 07:40 - Labs Result Diagrams: 11/06/18 12:03 11/06/18 12:03 Labs: Laboratory Results - last 24 hr 11/06/18 11/07/18 11/07/18 15:09 06:39 11:18 PT INR POC Glucose (mg/dL) 95 158 H Urine Color Yellow Urine Clarity Clear Urine pH 5.0 Ur Specific [place] 1.009 Urine Protein Negative Urine Glucose (UA) Normal Urine Ketones Negative Urine Blood Negative Urine Nitrate Negative Urine Bilirubin Negative Urine Urobilinogen Normal Ur Leukocyte Esterase Trace Urine WBC (Auto) 6 H Urine RBC (Auto) 1 Ur Squamous Epith Cells 4 Urine Bacteria Rare Hyaline Casts 11-20 H 11/07/18 11:29 PT 60.8 H D INR 5.5 H* D POC Glucose (mg/dL) Urine Color Urine Clarity Urine pH Ur Specific [place] Urine Protein Urine Glucose (UA) Urine Ketones Urine Blood Urine Nitrate Urine Bilirubin Urine Urobilinogen Ur Leukocyte Esterase Urine WBC (Auto) Urine RBC (Auto) Ur Squamous Epith Cells Urine Bacteria Hyaline Casts Assessment & Plan - Assessment and Plan (Free Text) Assessment: 78 year old female with 78 year old female with a past medical history of cerebral aneurysm, hypertension, diabetes, hypercholesterolemia, iron deficiency, and gastritis presents to the hospital with complaints of shoulder pain radiating to neck and arms. Plan: 1.CHF BNP upon admisson: 1720 MUGA scan ordered .Will f/u with results Medications: Metoprolol 50mg PO Daily Lasix 40 PO Daily Vaostec 10 mg PO Daily Spironolactone 25mg PO Daily 2.D.M. -ISS Medications: Glucophage 250mg PO Daily 3. Pneumonia CXR: shows Right upper lobe pneumonia Influenza vaccine given. Pneumovax 23 given. Medications: Rocephin 1gm IVPB Daily Mucinex 600mg PO BID ON LICENSE OF [facility] Plan discussed with Attending Dr. Yip. Omar Leggett, Pgy-2 <David Yip - Last Filed: 11/08/18 08:16> Meds - Medications Medications: Current Medications Albuterol/Ipratropium (Duoneb 3 Mg/0.5 Mg (3 Ml) Ud) 3 ml INH RQ6 ON LICENSE OF [facility] Last Admin: 11/08/18 01:02 Dose: Not Given Amiodarone HCl (Cordarone) 200 mg PO DAILY ON LICENSE OF [facility] Last Admin: 11/07/18 09:18 Dose: 200 mg Calcium Carbonate (Oscal) 500 mg PO BID ON LICENSE OF [facility] Last Admin: 11/07/18 17:36 Dose: 500 mg Enalapril Maleate (Vasotec) 10 mg PO DAILY ON LICENSE OF [facility] Last Admin: 11/07/18 09:18 Dose: 10 mg Furosemide (Lasix) 40 mg PO DAILY ON LICENSE OF [facility] Last Admin: 11/07/18 09:23 Dose: 40 mg Glyburide (Micronase) 1.25 mg PO DAILY ON LICENSE OF [facility] Last Admin: 11/07/18 10:45 Dose: 1.25 mg Guaifenesin (Mucinex La) 600 mg PO BID ON LICENSE OF [facility] Last Admin: 11/07/18 17:36 Dose: 600 mg Guaifenesin (Robitussin) 200 mg PO Q4H PRN PRN Reason: Cough and congestion Hydrochlorothiazide (Microzide) 12.5 mg PO DAILY ON LICENSE OF [facility] Last Admin: 11/07/18 09:17 Dose: 12.5 mg Ceftriaxone Sodium 1 gm/ (Sodium Chloride) 100 mls @ 100 mls/hr IVPB DAILY ON LICENSE OF [facility]; Protocol Last Admin: 11/07/18 09:15 Dose: 100 mls/hr Influenza Virus Vaccine (Flucelvax Quad [id number] Syr) 60 mcg IM .ONCE ONE Stop: 11/10/18 10:01 Insulin Aspart (Novolog) 0 unit SC [facility]; Protocol Last Admin: 11/08/18 07:35 Dose: Not Given Lactulose (Enulose) 20 gm PO HS PRN PRN Reason: Constipation Metformin HCl (Glucophage) 250 mg PO DAILY ON LICENSE OF [facility] Last Admin: 11/07/18 09:31 Dose: 250 mg Metoprolol Succinate (Toprol Xl) 50 mg PO DAILY ON LICENSE OF [facility] Last Admin: 11/07/18 09:18 Dose: 50 mg Morphine Sulfate (Morphine) 2 mg IVP Q4 PRN PRN Reason: Pain, moderate (4-7) Last Admin: 11/08/18 08:00 Dose: 2 mg Pneumococcal Polyvalent Vaccine (Pneumovax 23 Vaccine) 0.5 ml IM .ONCE ONE Stop: 11/10/18 10:01 Rosuvastatin Calcium (Crestor) 5 mg PO HS ON LICENSE OF [facility] Last Admin: 11/07/18 21:22 Dose: 5 mg Spironolactone (Aldactone) 25 mg PO DAILY ON LICENSE OF [facility] Last Admin: 11/07/18 09:17 Dose: 25 mg Temazepam (Restoril) 15 mg PO HS PRN PRN Reason: Insomnia Results - Vital Signs Recent Vital Signs: Last Vital Signs Temp 98.8 F 11/08/18 07:00 Pulse 71 11/08/18 07:00 Resp 20 11/08/18 07:00 BP 121/67 11/08/18 07:00 Pulse Ox 99 11/08/18 07:00 - Labs Result Diagrams: 11/06/18 12:03 11/06/18 12:03 Labs: Laboratory Results - last 24 hr 11/07/18 11/07/18 11/07/18 11:18 11:29 16:37 PT 60.8 H D INR 5.5 H* D POC Glucose (mg/dL) 158 H 181 H 11/07/18 11/08/18 21:01 06:36 PT 59.2 H INR 5.4 H* POC Glucose (mg/dL) 206 H Assessment & Plan - Assessment and Plan (Free Text) Plan: Patient seen and evaluated personally by me. Plan of care d/w the resident and as documented
[2018-11-07] MEDS: Albuterol-Ipratrop 3 mg / 0.5 (3 ml) UD INH SCH ×2 (13:26→18:55)
--- NOTE | 2018-11-07 15:06 | CT ---
CT right shoulder HISTORY: Shoulder pain. Comparison: CT chest dated 11/06/2018 Technique: Multiple contiguous axial images were performed through the right shoulder without the use of intravenous contrast. Subsequently, sagittal and coronal reformatted images were obtained. This CT exam was performed using one or more of the following dose reduction techniques: Automated exposure control, adjustment of the mA and/or kV according to patient size, and/or use of iterative reconstruction technique. Findings: Right shoulder: Severe narrowing at the right glenohumeral joint space with subchondral sclerosis, osteophytosis, and extensive subchondral cyst formation. There is prominent bony remodeling of the glenoid. Moderate right shoulder joint effusion is noted. Moderate to severe narrowing of the right acromioclavicular joint space. Again identified is a large mass in the right lung concerning for possible neoplasm measuring up to 3 centimeters. Clinical correlation. Correlation with PET-CT may be helpful. Pacemaker device is noted on the burglar alarm inspector view. Impression: 1. Severe narrowing at the right glenohumeral joint space with subchondral sclerosis, osteophytosis, and extensive subchondral cyst formation. There is prominent bony remodeling of the glenoid. Moderate right shoulder joint effusion is noted. These changes may be the sequelae of severe degenerative change. Given the moderate shoulder joint effusion, superimposed acute infectious and or inflammatory changes cannot entirely be excluded. Clinical correlation. Correlation with joint aspiration and culture sampling may be helpful if clinically indicated 2. Moderate to severe narrowing of the right acromioclavicular joint space. 3. Again identified is a large mass in the right lung concerning for possible neoplasm measuring up to 3 centimeters. Clinical correlation. Correlation with PET-CT may be helpful. Pacemaker device is noted on the burglar alarm inspector view.
[2018-11-07 15:54] VITALS: RESP 20
--- NOTE | 2018-11-07 17:02 | CP.PCM.CON ---
History of Present Illness - History of Present Illness History of Present Illness: Ms. Pal is a pleasant 78yo F with PMHx significant for osteoarthritis, CAD, COPD and other multiple chronic conditions listed below, who initially presented to the ED yesterday with complaints of bilateral shoulder pain, exacerbated from her chronic pain at baseline. Incidentally during the interview, patient mentioned that she has had some productive cough, congestion, subjective fever/chills and SOB x 1-2 weeks. Initial work-up included CXR and subsequent CT chest that revealed a right-upper lobe pneumonia, multiple foci of patchy consolidation and atelectasis and large subpleural lung mass noted in the keg raiser right upper lobe. At this time, patient reports mild shortness of breath, associated with a productive cough with sputum that is difficult to clear. Currently denies any fever, chills, chest pain, leg swelling, abdominal pain, nausea or vomiting. No other complaints are noted. ROS: All systems are negative except those stated above in HPI PMHx: Congestive heart failure (AICD in place) secondary to dilated ischemic cardiomyopathy, morbid obesity, T2DM, CAD, HTN, HLD, AFib, CKD, chronic vertigo, osteoarthritis of multiple joints, cerebral aneurysm Social Hx: Former smoker, quit 35 years ago Allergies: NKDA Home Medications: Metformin 250mg QD, Warfarin 2mg PO QD, Restoril 15mg qHS, Aldactone 25mg PO QD, Pravastatin 25mg QD, Toprol XL 50mg PO QD, Lactulose 20gram PO qHS, Novolog, Glyburide 1mg PO QD, Lasix 40mg QD, Enalapril 10mg PO QD, Vitamin D3 50,000U weekly, Calcium carbonate 500mg PO BID, Lotesin (benazepril/HCTZ) 20-12.5mg PO QD, Amiodarone 200mg PO QD, Tylenol #3 prn Exam: Gen: No acute distress. AAOx3, (+) Large hyperpigmented lesion noted to the face, stated as " chacha". HEENT: Moist mucosa. (+) Exotropia of R eye noted. Card: RRRR, no murmurs, rubs or gallops. Lungs: Symmetric chest excursions. No tachypnea or respiratory distress noted. Clear to auscultation. No wheezing, rales or rhonchi heard. Abd: Soft, non-distended. No tenderness to palpation. A&P 1. Pneumonia, acute - Continue IV ABX 2. Unspecified lung mass - CT chest (11/06): Right upper lobe pneumonia, with large 3.5 x 3.6cm subpleural lobular mass in the posterior right upper lobe. Additional smaller area of consolidation in the right lung base. A second 1.9cm calcified nodule noted in left lung base. Multiple areas of patchy consolidation. Chronic emphysematous pattern. IVC filter in place. Multinodular goiter noted. Cardiomegaly noted. - Biopsy and/or PET recommended to characterize this lesion. 3. Osteoarthritis - Continue medical management Past Patient History - Infectious Disease Hx of Infectious Diseases: None - Past Medical History & Family History Past Medical History?: Yes - Past Social History Smoking Status: Former Smoker - CARDIAC Hx Congestive Heart Failure: Yes Hx Hypertension: Yes Hx Pacemaker: Yes - NEUROLOGICAL Hx Neurological Disorder: Yes HX Cerebrovascular Accident: Yes (1994) - RENAL Hx Chronic Kidney Disease: No - ENDOCRINE/METABOLIC Hx Endocrine Disorders: Yes Hx Diabetes Mellitus Type 2: Yes - HEMATOLOGICAL/ONCOLOGICAL Hx Blood Disorders: Yes Hx Blood Transfusions: Yes Hx Cancer: Yes (colon, breast) - INTEGUMENTARY Hx Dermatological Problems: No - MUSCULOSKELETAL/RHEUMATOLOGICAL Hx Musculoskeletal Disorders: Yes Hx Falls: Yes Hx Osteoarthritis: Yes - GASTROINTESTINAL Hx Gastrointestinal Disorders: Yes Hx Bowel Surgery: Yes - GENITOURINARY/GYNECOLOGICAL Hx Genitourinary Disorders: No - PSYCHIATRIC Hx Substance Use: No - SURGICAL HISTORY Hx Surgeries: Yes Other/Comment: Pacemaker,colon sx ca, l breast sx cancer. BRAIN SX for aneuyysm - ANESTHESIA Hx Anesthesia: Yes Meds Allergies/Adverse Reactions: Allergies Allergy/AdvReac Type Severity Reaction Status Date / Time No Known Allergies Allergy Verified 11/06/18 10:15 - Medications Medications: Current Medications Acetaminophen/Codeine Phosphate (Tylenol/Codeine 300 Mg/30 Mg) 2 ea PO Q4 PRN PRN Reason: Pain, moderate (4-7) Last Admin: 11/07/18 05:56 Dose: 2 ea Albuterol/Ipratropium (Duoneb 3 Mg/0.5 Mg (3 Ml) Ud) 3 ml INH RQ6 [facility] Last Admin: 11/07/18 13:26 Dose: Not Given Amiodarone HCl (Cordarone) 200 mg PO DAILY [facility] Last Admin: 11/07/18 09:18 Dose: 200 mg Calcium Carbonate (Oscal) 500 mg PO BID [facility] Last Admin: 11/07/18 09:18 Dose: 500 mg Enalapril Maleate (Vasotec) 10 mg PO DAILY [facility] Last Admin: 11/07/18 09:18 Dose: 10 mg Furosemide (Lasix) 40 mg PO DAILY [facility] Last Admin: 11/07/18 09:23 Dose: 40 mg Glyburide (Micronase) 1.25 mg PO DAILY [facility] Last Admin: 11/07/18 10:45 Dose: 1.25 mg Guaifenesin (Mucinex La) 600 mg PO BID [facility] Last Admin: 11/07/18 09:17 Dose: 600 mg Guaifenesin (Robitussin) 200 mg PO Q4H PRN PRN Reason: Cough and congestion Hydrochlorothiazide (Microzide) 12.5 mg PO DAILY [facility] Last Admin: 11/07/18 09:17 Dose: 12.5 mg Ceftriaxone Sodium 1 gm/ (Sodium Chloride) 100 mls @ 100 mls/hr IVPB DAILY [facility]; Protocol Last Admin: 11/07/18 09:15 Dose: 100 mls/hr Influenza Virus Vaccine (Flucelvax Quad 7186-2429 Syr) 60 mcg IM .ONCE ONE Stop: 11/10/18 10:01 Insulin Aspart (Novolog) 0 unit SC [facility]; Protocol Last Admin: 11/07/18 12:40 Dose: 1 u Lactulose (Enulose) 20 gm PO HS PRN PRN Reason: Constipation Metformin HCl (Glucophage) 250 mg PO DAILY [facility] Last Admin: 11/07/18 09:31 Dose: 250 mg Metoprolol Succinate (Toprol Xl) 50 mg PO DAILY [facility] Last Admin: 11/07/18 09:18 Dose: 50 mg Pneumococcal Polyvalent Vaccine (Pneumovax 23 Vaccine) 0.5 ml IM .ONCE ONE Stop: 11/10/18 10:01 Rosuvastatin Calcium (Crestor) 5 mg PO HS [facility] Spironolactone (Aldactone) 25 mg PO DAILY [facility] Last Admin: 11/07/18 09:17 Dose: 25 mg Temazepam (Restoril) 15 mg PO HS PRN PRN Reason: Insomnia Results - Vital Signs Recent Vital Signs: Last Vital Signs Temp 97.8 F 11/07/18 15:53 Pulse 72 11/07/18 15:53 Resp 20 11/07/18 15:53 BP 148/79 11/07/18 15:53 Pulse Ox 96 11/07/18 15:53 - Labs Result Diagrams: 11/06/18 12:03 11/06/18 12:03 Labs: Laboratory Results - last 24 hr 11/07/18 11/07/18 11/07/18 06:39 11:18 11:29 PT 60.8 H D INR 5.5 H* D POC Glucose (mg/dL) 95 158 H
--- NOTE | 2018-11-07 21:22 | CARD ---
APPROVED REPORT Date of service: 11/06/2018 EKG Measurement Heart [id number] <Conclusion> Sinus rhythm with 1st degree AV block Prolonged QT Abnormal ECG
[2018-11-07] MEDS: Morphine 4 MG/ML VIAL IVP PRN (22:15)
--- NOTE | 2018-11-07 22:37 | CP.PCM.PN ---
Subjective - Subjective Subjective: dictated Objective - Vital Signs/Intake and Output Vital Signs (last 24 hours): Temp Pulse Resp BP Pulse Ox 97.8 F 72 20 148/79 96 11/07/18 15:53 11/07/18 15:53 11/07/18 15:53 11/07/18 15:53 11/07/18 15:53 Intake and Output: 11/07/18 11/08/18 18:59 06:59 Intake Total 100 Balance 100 - Medications Medications: Current Medications Albuterol/Ipratropium (Duoneb 3 Mg/0.5 Mg (3 Ml) Ud) 3 ml INH RQ6 [facility] Last Admin: 11/07/18 18:55 Dose: 3 ml Amiodarone HCl (Cordarone) 200 mg PO DAILY [facility] Last Admin: 11/07/18 09:18 Dose: 200 mg Calcium Carbonate (Oscal) 500 mg PO BID [facility] Last Admin: 11/07/18 17:36 Dose: 500 mg Enalapril Maleate (Vasotec) 10 mg PO DAILY [facility] Last Admin: 11/07/18 09:18 Dose: 10 mg Furosemide (Lasix) 40 mg PO DAILY [facility] Last Admin: 11/07/18 09:23 Dose: 40 mg Glyburide (Micronase) 1.25 mg PO DAILY [facility] Last Admin: 11/07/18 10:45 Dose: 1.25 mg Guaifenesin (Mucinex La) 600 mg PO BID [facility] Last Admin: 11/07/18 17:36 Dose: 600 mg Guaifenesin (Robitussin) 200 mg PO Q4H PRN PRN Reason: Cough and congestion Hydrochlorothiazide (Microzide) 12.5 mg PO DAILY [facility] Last Admin: 11/07/18 09:17 Dose: 12.5 mg Ceftriaxone Sodium 1 gm/ (Sodium Chloride) 100 mls @ 100 mls/hr IVPB DAILY [facility]; Protocol Last Admin: 11/07/18 09:15 Dose: 100 mls/hr Influenza Virus Vaccine (Flucelvax Quad [id number] Syr) 60 mcg IM .ONCE ONE Stop: 11/10/18 10:01 Insulin Aspart (Novolog) 0 unit SC [facility]; Protocol Last Admin: 11/07/18 21:43 Dose: Not Given Lactulose (Enulose) 20 gm PO HS PRN PRN Reason: Constipation Metformin HCl (Glucophage) 250 mg PO DAILY [facility] Last Admin: 11/07/18 09:31 Dose: 250 mg Metoprolol Succinate (Toprol Xl) 50 mg PO DAILY [facility] Last Admin: 11/07/18 09:18 Dose: 50 mg Morphine Sulfate (Morphine) 2 mg IVP Q4 PRN PRN Reason: Pain, moderate (4-7) Last Admin: 11/07/18 22:15 Dose: 2 mg Pneumococcal Polyvalent Vaccine (Pneumovax 23 Vaccine) 0.5 ml IM .ONCE ONE Stop: 11/10/18 10:01 Rosuvastatin Calcium (Crestor) 5 mg PO HS [facility] Last Admin: 11/07/18 21:22 Dose: 5 mg Spironolactone (Aldactone) 25 mg PO DAILY [facility] Last Admin: 11/07/18 09:17 Dose: 25 mg Temazepam (Restoril) 15 mg PO HS PRN PRN Reason: Insomnia - Labs Labs: 11/06/18 12:03 11/06/18 12:03 PT 60.8 SECONDS (9.7-12.2) H D 11/07/18 11:29 INR 5.5 H* D 11/07/18 11:29 APTT 48 SECONDS (21-34) H 11/06/18 12:03
[2018-11-08] MEDS: Albuterol-Ipratrop 3 mg / 0.5 (3 ml) UD INH SCH ×4 (01:02→19:05)
--- NOTE | 2018-11-08 03:33 | PN ---
DATE: 11/07/2018 SUBJECTIVE: Giselle Pal has intense bilateral shoulder pain. She is coughing, but she denies any shortness of breath. She is on diuretics. No chest pain noted. INR is supratherapeutic. PHYSICAL EXAMINATION: VITAL SIGNS: Blood pressure 148/79, pulse 72, respiratory rate 20, and temperature 99.8. LUNGS: Bilateral scattered rales and rhonchi. CARDIOVASCULAR SYSTEM: S1, S2, plus S3 positive. ABDOMEN: Soft and nontender. Bowel sounds are positive. ASSESSMENT: 1. Pneumonia, rule out lung carcinoma. 2. Congestive heart failure. 3. Type 2 diabetes. 4. Osteoarthritis, left shoulder. PLAN: Orthopedic consult. Repeat coagulation profile. The patient may get biopsy of the lung. Monitor the patient. Raul Iverson MD
[2018-11-08 07:22] LABS: INR 5.4; PROTHROMBIN TIME 59.2 SECONDS (9.7-12.2)
[2018-11-08] MEDS: (Novolog) Insulin Aspart, Recombinant 100 u/ml 10 ml vial SC SCH ×4 (07:35→21:53)
[2018-11-08] MEDS: Morphine 4 MG/ML VIAL IVP PRN ×2 (08:00→22:16)
[2018-11-08 08:31] LABS: HEMOGLOBIN 11.5 g/dL (11.0-16.0); MEAN CELL VOLUME 95.2 fL (81.0-99.0); MEAN CORPUSCULAR HEMOGLOBIN 31.2 pg (27.0-31.0); MEAN CORPUSCULAR HGB CONC 32.7 g/dL (33.0-37.0); MEAN PLATELET VOLUME 8.8 fL (7.2-11.7); RBC 3.71 Mil/uL (3.80-5.20); WHITE BLOOD COUNT 7.4 K/uL (4.8-10.8)
[2018-11-08] MEDS ORDERED: Phytonadione 10 mg/ml Inj (Adult) IV STA (08:38)
--- NOTE | 2018-11-08 08:44 | CP.PCM.CON ---
History of Present Illness - History of Present Illness History of Present Illness: Orthopedic consultation Dr. Chowdhury 78F complains of severe pain in both of her shoulders. Patient is known to me, last seen for same complaint approx 3.5 years ago. She has known severe DJD of bilateral shoulders, has not had treatment for this as recommended in past. She says the pain in her shoulders is worse now, so she came to the ER. She denies any numbness/tingling. She denies trauma or falls. She says she is unable to move her arms without severe pain. Denies pain in other extremities. Also with complaints of SOB on admission. Denies fever/chills/CP/n/v/bleeding. Review of Systems - Review of Systems All systems: reviewed and no additional remarkable complaints except - Constitutional Constitutional: As Per HPI - Cardiovascular Cardiovascular: As Per HPI - Respiratory Respiratory: As Per HPI - Gastrointestinal Gastrointestinal: As Per HPI - Musculoskeletal Musculoskeletal: As Per HPI - Integumentary Additional comments: no wounds - Neurological Neurological: As Per HPI - Hematologic/Lymphatic Hematologic: As Per HPI Past Patient History - Infectious Disease Hx of Infectious Diseases: None - Past Medical History & Family History Past Medical History?: Yes Past Family History: Reviewed and not pertinent - Past Social History Smoking Status: Former Smoker - CARDIAC Hx Congestive Heart Failure: Yes Hx Hypertension: Yes Hx Pacemaker: Yes - NEUROLOGICAL Hx Neurological Disorder: Yes HX Cerebrovascular Accident: Yes (1994) - RENAL Hx Chronic Kidney Disease: No - ENDOCRINE/METABOLIC Hx Endocrine Disorders: Yes Hx Diabetes Mellitus Type 2: Yes - HEMATOLOGICAL/ONCOLOGICAL Hx Blood Disorders: Yes Hx Blood Transfusions: Yes Hx Cancer: Yes (colon, breast) - INTEGUMENTARY Hx Dermatological Problems: No - MUSCULOSKELETAL/RHEUMATOLOGICAL Hx Falls: Yes - GASTROINTESTINAL Hx Gastrointestinal Disorders: Yes Hx Bowel Surgery: Yes - GENITOURINARY/GYNECOLOGICAL Hx Genitourinary Disorders: No - PSYCHIATRIC Hx Substance Use: No - SURGICAL HISTORY Hx Surgeries: Yes Other/Comment: Pacemaker,colon sx ca, l breast sx cancer. BRAIN SX for aneuyysm - ANESTHESIA Hx Anesthesia: Yes Hx Anesthesia Reactions: No Meds Allergies/Adverse Reactions: Allergies Allergy/AdvReac Type Severity Reaction Status Date / Time No Known Allergies Allergy Verified 11/06/18 10:15 - Medications Medications: Current Medications Albuterol/Ipratropium (Duoneb 3 Mg/0.5 Mg (3 Ml) Ud) 3 ml INH RQ6 [facility] Last Admin: 11/08/18 01:02 Dose: Not Given Amiodarone HCl (Cordarone) 200 mg PO DAILY [facility] Last Admin: 11/07/18 09:18 Dose: 200 mg Calcium Carbonate (Oscal) 500 mg PO BID [facility] Last Admin: 11/07/18 17:36 Dose: 500 mg Enalapril Maleate (Vasotec) 10 mg PO DAILY [facility] Last Admin: 11/07/18 09:18 Dose: 10 mg Furosemide (Lasix) 40 mg PO DAILY [facility] Last Admin: 11/07/18 09:23 Dose: 40 mg Glyburide (Micronase) 1.25 mg PO DAILY [facility] Last Admin: 11/07/18 10:45 Dose: 1.25 mg Guaifenesin (Mucinex La) 600 mg PO BID [facility] Last Admin: 11/07/18 17:36 Dose: 600 mg Guaifenesin (Robitussin) 200 mg PO Q4H PRN PRN Reason: Cough and congestion Hydrochlorothiazide (Microzide) 12.5 mg PO DAILY [facility] Last Admin: 11/07/18 09:17 Dose: 12.5 mg Ceftriaxone Sodium 1 gm/ (Sodium Chloride) 100 mls @ 100 mls/hr IVPB DAILY [facility]; Protocol Last Admin: 11/07/18 09:15 Dose: 100 mls/hr Influenza Virus Vaccine (Flucelvax Quad [id number] Syr) 60 mcg IM .ONCE ONE Stop: 11/10/18 10:01 Insulin Aspart (Novolog) 0 unit SC ACHS [facility]; Protocol Last Admin: 11/08/18 07:35 Dose: Not Given Lactulose (Enulose) 20 gm PO HS PRN PRN Reason: Constipation Metformin HCl (Glucophage) 250 mg PO DAILY [facility] Last Admin: 11/07/18 09:31 Dose: 250 mg Metoprolol Succinate (Toprol Xl) 50 mg PO DAILY [facility] Last Admin: 11/07/18 09:18 Dose: 50 mg Morphine Sulfate (Morphine) 2 mg IVP Q4 PRN PRN Reason: Pain, moderate (4-7) Last Admin: 11/08/18 08:00 Dose: 2 mg Phytonadione (Vitamin K Inj) 10 mg IV STAT STA Stop: 11/08/18 08:39 Pneumococcal Polyvalent Vaccine (Pneumovax 23 Vaccine) 0.5 ml IM .ONCE ONE Stop: 11/10/18 10:01 Rosuvastatin Calcium (Crestor) 5 mg PO HS [facility] Last Admin: 11/07/18 21:22 Dose: 5 mg Spironolactone (Aldactone) 25 mg PO DAILY [facility] Last Admin: 11/07/18 09:17 Dose: 25 mg Temazepam (Restoril) 15 mg PO HS PRN PRN Reason: Insomnia Physical Exam - Constitutional Appears: In Acute Distress - Head Exam Head Exam: ATRAUMATIC - Neck Exam Neck exam: Positive for: Full Rom, Normal Inspection - Respiratory Exam Respiratory Exam: NORMAL BREATHING PATTERN - Cardiovascular Exam Additional comments: +radial pulses B - Expanded Upper Extremities Exam Left Shoulder exam: tenderness (does not tolerate any AROM/PROM, sensation intact, severe tenderness to GH joint, skin intact, no erythema/swelling/deformity/discoloration, not palpably warm) Elbow exam: full ROM (complains of severe shoulder pain with attempts at elbow ROM) Neuro motor exam: finger 2-5 abduction intact, thumb abduction, thumb IP flexion intact, thumb opposition intact, wrist extension intact Neurosensory exam: median nerve intact, radial nerve intact, ulnar nerve intact Vascular exam: radial pulse Right Shoulder exam: tenderness (does not tolerate any AROM/PROM, sensation intact, severe tenderness to GH joint, skin intact, no erythema/swelling/deformity/discoloration, not palpably warm), normal inspection Elbow exam: full ROM (complains of shoulder pain with ROM elbow) Forearm Wrist exam: normal inspection Neuro motor exam: finger 2-5 abduction intact, thumb abduction, thumb IP flexion intact, thumb opposition intact, wrist extension intact Neurosensory exam: median nerve intact, radial nerve intact, ulnar nerve intact Vascular exam: radial pulse - Neurological Exam Neurological exam: Alert, Oriented x3 - Psychiatric Exam Psychiatric exam: Anxious - Skin Skin Exam: Dry, Intact, Normal Color, Warm Results - Vital Signs Recent Vital Signs: Last Vital Signs Temp 98.8 F 11/08/18 07:00 Pulse 70 11/08/18 08:00 Resp 20 11/08/18 07:00 BP 121/67 11/08/18 07:00 Pulse Ox 99 11/08/18 07:00 - Labs Result Diagrams: 11/08/18 08:19 11/06/18 12:03 Labs: Laboratory Results - last 24 hr 11/07/18 11/07/18 11/07/18 11:18 11:29 16:37 WBC RBC Hgb Hct MCV MCH MCHC RDW Plt Count MPV PT 60.8 H D INR 5.5 H* D POC Glucose (mg/dL) 158 H 181 H 11/07/18 11/08/18 11/08/18 21:01 06:06 06:36 WBC RBC Hgb Hct MCV MCH MCHC RDW Plt Count MPV PT 59.2 H INR 5.4 H* POC Glucose (mg/dL) 206 H 130 H 11/08/18 08:19 WBC 7.4 RBC 3.71 L Hgb 11.5 Hct 35.3 MCV 95.2 MCH 31.2 H MCHC 32.7 L RDW 16.0 H Plt Count 180 MPV 8.8 PT INR POC Glucose (mg/dL) - Impressions Impression: Patient Name / ID : MIGUE LLOYD A / [id number] Exam Date : 11/07/2018 13:33:42 ( Approved ) Study Comment : Sex / Age : F / 78Y Creator : Grace Mathias Dictator : Scot Sellers MD Photographic Specialist : [place] Reporter : Scot Sellers MD Approver2 : Report Date : 11/07/2018 14:05:16 My Comment : CT right shoulder HISTORY: Shoulder pain. Comparison: CT chest dated 11/06/2018 Technique: Multiple contiguous axial images were performed through the right shoulder without the use of intravenous contrast. Subsequently, sagittal and coronal reformatted images were obtained. This CT exam was performed using one or more of the following dose reduction techniques: Automated exposure control, adjustment of the mA and/or kV according to patient size, and/or use of iterative reconstruction technique. Findings: Right shoulder: Severe narrowing at the right glenohumeral joint space with subchondral sclerosis, osteophytosis, and extensive subchondral cyst formation. There is prominent bony remodeling of the glenoid. Moderate right shoulder joint effusion is noted. Moderate to severe narrowing of the right acromioclavicular joint space. Again identified is a large mass in the right lung concerning for possible neoplasm measuring up to 3 centimeters. Clinical correlation. Correlation with PET-CT may be helpful. Pacemaker device is noted on the hemstitcher view. Impression: 1. Severe narrowing at the right glenohumeral joint space with subchondral sclerosis, osteophytosis, and extensive subchondral cyst formation. There is prominent bony remodeling of the glenoid. Moderate right shoulder joint effusion is noted. These changes may be the sequelae of severe degenerative change. Given the moderate shoulder joint effusion, superimposed acute infectious and or inflammatory changes cannot entirely be excluded. Clinical correlation. Correlation with joint aspiration and culture sampling may be helpful if clinically indicated 2. Moderate to severe narrowing of the right acromioclavicular joint space. 3. Again identified is a large mass in the right lung concerning for possible neoplasm measuring up to 3 centimeters. Clinical correlation. Correlation with PET-CT may be helpful. Pacemaker device is noted on the hemstitcher view. Assessment & Plan (1) Degenerative joint disease, shoulder, right Assessment and Plan: severe osteoarthritis of bilateral shoulders joint effusion moderate noted on CT of right shoulder unable to get MRI due to pacemaker No trauma possible effusion due to severe DJD, patient is afebrile, no leukocytosis, shoulder joint not warm low suspicion of septic arthritis INR 3.7 on admission, 5.4 this am, hemarthrosis is possibility check CBC today plain xrays of B shoulders ordered patient on morphine, had one dose this am after exam, will attempt lidoderm patches, one dose of toradol now so patient can tolerate xrays d/w Dr. Chowdhury, agrees with above, will f/u xrays, cbc, attempt pain control patient's shoulder arthritis is severe, has previously been indicated for total shoulder replacement. However, patient currently with lung mass workup, so is not elective surgical candidate at this time Status: Acute (2) Arthritis of left glenohumeral joint Status: Acute
[2018-11-08] MEDS: Lidocaine 5% Patch TD SCH ×2 (09:33)
[2018-11-08] MEDS: Metoprolol Succinate 50 mg XL Tab PO SCH (09:35)
[2018-11-08] MEDS: guaiFENesin 600 mg ER Tab PO SCH ×2 (09:35→17:42)
[2018-11-08] MEDS: metFORMIN 250 mg Tab PO SCH (09:36)
--- NOTE | 2018-11-08 13:42 | CP.PCM.PN ---
<Omar Leggett - Last Filed: 11/08/18 17:09> Subjective - Date & Time of Evaluation Date of Evaluation: 11/08/18 Time of Evaluation: 13:42 - Subjective Subjective: PGY-2 Progress Note: Dr. Yip Service Patient seen and examined at bedside. Per nursing, no acute events occurred overnight .Patient denies any fevers, chills, nausea, vomiting, chest pain, abdominal pain, or any other complaints. Objective - Vital Signs/Intake and Output Vital Signs (last 24 hours): Temp Pulse Resp BP Pulse Ox 98.8 F 72 20 144/85 99 11/08/18 07:00 11/08/18 12:00 11/08/18 07:00 11/08/18 09:35 11/08/18 07:00 Intake and Output: 11/08/18 11/08/18 06:59 18:59 Intake Total 260 Output Total 400 Balance -140 - Medications Medications: Current Medications Albuterol/Ipratropium (Duoneb 3 Mg/0.5 Mg (3 Ml) Ud) 3 ml INH RQ6 [facility] Last Admin: 11/08/18 07:30 Dose: 3 ml Amiodarone HCl (Cordarone) 200 mg PO DAILY [facility] Last Admin: 11/08/18 09:35 Dose: 200 mg Calcium Carbonate (Oscal) 500 mg PO BID [facility] Last Admin: 11/08/18 09:35 Dose: 500 mg Enalapril Maleate (Vasotec) 10 mg PO DAILY [facility] Last Admin: 11/08/18 09:35 Dose: 10 mg Furosemide (Lasix) 40 mg PO DAILY [facility] Last Admin: 11/08/18 09:35 Dose: 40 mg Glyburide (Micronase) 1.25 mg PO DAILY [facility] Last Admin: 11/08/18 09:37 Dose: 1.25 mg Guaifenesin (Mucinex La) 600 mg PO BID [facility] Last Admin: 11/08/18 09:35 Dose: 600 mg Guaifenesin (Robitussin) 200 mg PO Q4H PRN PRN Reason: Cough and congestion Hydrochlorothiazide (Microzide) 12.5 mg PO DAILY [facility] Last Admin: 11/08/18 09:35 Dose: 12.5 mg Ceftriaxone Sodium 1 gm/ (Sodium Chloride) 100 mls @ 100 mls/hr IVPB DAILY [facility]; Protocol Last Admin: 11/08/18 09:34 Dose: 100 mls/hr Influenza Virus Vaccine (Flucelvax Quad 0588-1251 Syr) 60 mcg IM .ONCE ONE Stop: 11/10/18 10:01 Insulin Aspart (Novolog) 0 unit SC ACHS [facility]; Protocol Last Admin: 11/08/18 12:11 Dose: 1 u Lactulose (Enulose) 20 gm PO HS PRN PRN Reason: Constipation Lidocaine (Lidoderm) 1 ea TD DAILY [facility] Last Admin: 11/08/18 09:33 Dose: 1 ea Lidocaine (Lidoderm) 1 ea TD DAILY [facility] Last Admin: 11/08/18 09:33 Dose: 1 ea Metformin HCl (Glucophage) 250 mg PO DAILY [facility] Last Admin: 11/08/18 09:36 Dose: 250 mg Metoprolol Succinate (Toprol Xl) 50 mg PO DAILY [facility] Last Admin: 11/08/18 09:35 Dose: 50 mg Morphine Sulfate (Morphine) 2 mg IVP Q4 PRN PRN Reason: Pain, moderate (4-7) Last Admin: 11/08/18 08:00 Dose: 2 mg Pneumococcal Polyvalent Vaccine (Pneumovax 23 Vaccine) 0.5 ml IM .ONCE ONE Stop: 11/10/18 10:01 Rosuvastatin Calcium (Crestor) 5 mg PO HS [facility] Last Admin: 11/07/18 21:22 Dose: 5 mg Spironolactone (Aldactone) 25 mg PO DAILY [facility] Last Admin: 11/08/18 09:35 Dose: 25 mg Temazepam (Restoril) 15 mg PO HS PRN PRN Reason: Insomnia - Labs Labs: 11/08/18 08:19 11/06/18 12:03 PT 59.2 SECONDS (9.7-12.2) H 11/08/18 06:36 INR 5.4 H* 11/08/18 06:36 APTT 48 SECONDS (21-34) H 11/06/18 12:03 - Head Exam Head Exam: ATRAUMATIC, NORMAL INSPECTION - Eye Exam Eye Exam: EOMI, Normal appearance, PERRL Pupil Exam: NORMAL ACCOMODATION - ENT Exam ENT Exam: Mucous Membranes Moist, Normal Oropharynx - Respiratory Exam Respiratory Exam: Clear to Ausculation Bilateral, NORMAL BREATHING PATTERN. absent: Prolonged Expiratory Phase - Cardiovascular Exam Cardiovascular Exam: REGULAR RHYTHM, RRR, +S1, +S2. absent: Rubs - GI/Abdominal Exam GI & Abdominal Exam: Soft, Normal Bowel Sounds. absent: Hyperactive Bowel Sounds - Extremities Exam Extremities Exam: Full ROM. absent: Pedal Edema - Back Exam Back Exam: NORMAL INSPECTION. absent: CVA tenderness (R), paraspinal tenderness - Neurological Exam Neurological Exam: Alert, Awake, CN II-XII Intact - Psychiatric Exam Psychiatric exam: Normal Mood. absent: Depressed, Normal Affect - Skin Skin Exam: Dry, Intact Assessment and Plan - Assessment and Plan (Free Text) Assessment: 78 year old female with 78 year old female with a past medical history of cerebral aneurysm, hypertension, diabetes, hypercholesterolemia, iron deficiency, and gastritis presents to the hospital with complaints of shoulder pain radiating to neck and arms. Plan: 1.CHF BNP upon admisson: 1720 MUGA scan ordered .Will f/u with results Medications: Metoprolol 50mg PO Daily Lasix 40 PO Daily Vaostec 10 mg PO Daily Spironolactone 25mg PO Daily Microzide 12.5mg PO Daily Aldactone 25mg PO Daily [facility] 2.D.M. -[facility] Medications: Glucophage 250mg PO Daily 3. Pneumonia CXR: shows Right upper lobe pneumonia Influenza vaccine given. Pneumovax 23 given. Medications: Rocephin 1gm IVPB Daily Mucinex 600mg PO BID [facility] Duoneb 3ml INH RQ6 [facility] Plan discussed with Attending Dr. Yip. Omar Leggett, Pgy-2 <David Yip - Last Filed: 11/09/18 21:58> Objective - Vital Signs/Intake and Output Vital Signs (last 24 hours): Temp Pulse Resp BP Pulse Ox 98.5 F 72 20 142/77 97 11/09/18 15:45 11/09/18 15:45 11/09/18 15:45 11/09/18 15:45 11/09/18 15:45 Intake and Output: 11/09/18 11/10/18 18:59 06:59 Intake Total 500 Balance 500 - Medications Medications: Current Medications Albuterol/Ipratropium (Duoneb 3 Mg/0.5 Mg (3 Ml) Ud) 3 ml INH RQ6 [facility] Last Admin: 11/09/18 19:03 Dose: 3 ml Amiodarone HCl (Cordarone) 200 mg PO DAILY [facility] Last Admin: 11/09/18 10:19 Dose: 200 mg Calcium Carbonate (Oscal) 500 mg PO BID [facility] Last Admin: 11/09/18 18:44 Dose: 500 mg Enalapril Maleate (Vasotec) 10 mg PO DAILY [facility] Last Admin: 11/09/18 10:19 Dose: 10 mg Furosemide (Lasix) 40 mg PO DAILY [facility] Last Admin: 11/09/18 10:19 Dose: 40 mg Glyburide (Micronase) 1.25 mg PO DAILY [facility] Last Admin: 11/09/18 10:20 Dose: 1.25 mg Guaifenesin (Mucinex La) 600 mg PO BID [facility] Last Admin: 11/09/18 18:44 Dose: 600 mg Guaifenesin (Robitussin) 200 mg PO Q4H PRN PRN Reason: Cough and congestion Last Admin: 11/09/18 10:25 Dose: 200 mg Hydrochlorothiazide (Microzide) 12.5 mg PO DAILY [facility] Last Admin: 11/09/18 10:19 Dose: 12.5 mg Ceftriaxone Sodium 1 gm/ (Sodium Chloride) 100 mls @ 100 mls/hr IVPB DAILY [facility]; Protocol Last Admin: 11/09/18 10:20 Dose: 100 mls/hr Influenza Virus Vaccine (Flucelvax Quad 7230-7898 Syr) 60 mcg IM .ONCE ONE Stop: 11/10/18 10:01 Insulin Aspart (Novolog) 0 unit SC [facility]; Protocol Last Admin: 11/09/18 17:30 Dose: 1 unit Lactulose (Enulose) 20 gm PO HS PRN PRN Reason: Constipation Lidocaine (Lidoderm) 1 ea TD DAILY [facility] Last Admin: 11/09/18 10:20 Dose: 1 ea Lidocaine (Lidoderm) 1 ea TD DAILY [facility] Last Admin: 11/09/18 10:20 Dose: 1 ea Metformin HCl (Glucophage) 250 mg PO DAILY [facility] Last Admin: 11/09/18 10:19 Dose: 250 mg Metoprolol Succinate (Toprol Xl) 50 mg PO DAILY [facility] Last Admin: 11/09/18 10:19 Dose: 50 mg Morphine Sulfate (Morphine) 2 mg IVP Q4 PRN PRN Reason: Pain, moderate (4-7) Last Admin: 11/09/18 18:59 Dose: 2 mg Nystatin (Nystop Topical Powder) 1 applic TOP BID [facility] Last Admin: 11/09/18 18:44 Dose: 1 applic Pneumococcal Polyvalent Vaccine (Pneumovax 23 Vaccine) 0.5 ml IM .ONCE ONE Stop: 11/10/18 10:01 Rosuvastatin Calcium (Crestor) 5 mg PO HS [facility] Last Admin: 11/08/18 22:16 Dose: 5 mg Spironolactone (Aldactone) 25 mg PO DAILY [facility] Last Admin: 11/09/18 10:20 Dose: 25 mg Temazepam (Restoril) 15 mg PO HS PRN PRN Reason: Insomnia - Labs Labs: 11/09/18 04:42 11/09/18 04:42 PT 17.7 SECONDS (9.7-12.2) H 11/09/18 07:29 INR 1.6 11/09/18 07:29 APTT 48 SECONDS (21-34) H 11/06/18 12:03 Assessment and Plan - Assessment and Plan (Free Text) Assessment: Patient examined and evaluated personally by me. Plan of care d/w the medical doctor md and as documented
--- NOTE | 2018-11-08 13:52 | RAD ---
Date of service: 11/08/2018 PROCEDURE: Radiographs of both shoulders HISTORY: bilateral shoulder pain COMPARISON: CT chest without contrast 11/06/2018 noted and chest 11/06/2018 and chest 08/01/2018 FINDINGS: BONES: Right shoulder: No acute fracture appreciated. Asymmetrically greater radiolucency and ill definition of the cortex with lateral clavicular osseous hypertrophy suggested-a lytic lesion here and/or osteolysis here lateral clavicle is a consideration. Bone mineralization appears less now than even with comparative 08/01/2018 images of the chest. Right acromioclavicular and glenohumeral joint arthrosis. Left shoulder: No fracture appreciated. Somewhat flattened appearance to the left humeral head concomitant avascular necrosis here 1 consideration. JOINTS: Right shoulder: Significant osteoarthrosis Left shoulder: Significant osteoarthrosis. Concomitant possible avascular necrosis. Left loose bodies left glenohumeral joint suggested SOFT TISSUES: Right shoulder: Grossly unremarkable. Right shoulder: Grossly unremarkable. OTHER FINDINGS: Degenerative cervical apophyseal joint arthrosis. 3 cm right lung mass neoplasm/malignancy suspect. Please refer to the CT chest without contrast report 11/06/2018. Calcified hilar and mediastinal lymph nodes suggested IMPRESSION: Bilateral advanced osteoarthrosis of each shoulder-. Possible concomitant left humeral head avascular necrosis. Left shoulder loose bodies. Greater lucency of the lateral right clavicle here lytic lesion and/or osteolysis are considerations. Other findings as above.
--- NOTE | 2018-11-08 15:59 | CP.PCM.PN ---
Subjective - Date & Time of Evaluation Date of Evaluation: 11/08/18 Time of Evaluation: 12:20 - Subjective Subjective: Patient seen and examined at bedside. States she does not feel well as a whole and admits to difficulty breathing. No acute events since yesterday. Denies any chest pain, fever, chills, dizziness, or diaphoresis. Exam: General: Ill appearing but in no acute distress Heart: RRR, S1, S2 Lungs: CTA b/l Abdomen: soft, nontender, nondistended A&P: 1) lung mass/consolidation: pulmonary nodule seen on imaging. Biopsy recom mended after INR improves. cont antibiotics, neb treatment 2) Coagulopathy: Will administer vitamin K secondary to INR of 5.4. Will consider FFP transfusion if no improvement. Lung biopsy after INR improves. Objective - Vital Signs/Intake and Output Vital Signs (last 24 hours): Temp Pulse Resp BP Pulse Ox 98.8 F 72 20 144/85 99 11/08/18 07:00 11/08/18 12:00 11/08/18 07:00 11/08/18 09:35 11/08/18 07:00 Intake and Output: 11/08/18 11/08/18 06:59 18:59 Intake Total 260 400 Output Total 400 Balance -140 400 - Medications Medications: Current Medications Albuterol/Ipratropium (Duoneb 3 Mg/0.5 Mg (3 Ml) Ud) 3 ml INH RQ6 [facility] Last Admin: 11/08/18 13:50 Dose: 3 ml Amiodarone HCl (Cordarone) 200 mg PO DAILY [facility] Last Admin: 11/08/18 09:35 Dose: 200 mg Calcium Carbonate (Oscal) 500 mg PO BID [facility] Last Admin: 11/08/18 09:35 Dose: 500 mg Enalapril Maleate (Vasotec) 10 mg PO DAILY [facility] Last Admin: 11/08/18 09:35 Dose: 10 mg Furosemide (Lasix) 40 mg PO DAILY [facility] Last Admin: 11/08/18 09:35 Dose: 40 mg Glyburide (Micronase) 1.25 mg PO DAILY [facility] Last Admin: 11/08/18 09:37 Dose: 1.25 mg Guaifenesin (Mucinex La) 600 mg PO BID [facility] Last Admin: 11/08/18 09:35 Dose: 600 mg Guaifenesin (Robitussin) 200 mg PO Q4H PRN PRN Reason: Cough and congestion Hydrochlorothiazide (Microzide) 12.5 mg PO DAILY [facility] Last Admin: 11/08/18 09:35 Dose: 12.5 mg Ceftriaxone Sodium 1 gm/ (Sodium Chloride) 100 mls @ 100 mls/hr IVPB DAILY [facility]; Protocol Last Admin: 11/08/18 09:34 Dose: 100 mls/hr Influenza Virus Vaccine (Flucelvax Quad [id number] Syr) 60 mcg IM .ONCE ONE Stop: 11/10/18 10:01 Insulin Aspart (Novolog) 0 unit SC ACHS [facility]; Protocol Last Admin: 11/08/18 12:11 Dose: 1 u Lactulose (Enulose) 20 gm PO HS PRN PRN Reason: Constipation Lidocaine (Lidoderm) 1 ea TD DAILY [facility] Last Admin: 11/08/18 09:33 Dose: 1 ea Lidocaine (Lidoderm) 1 ea TD DAILY [facility] Last Admin: 11/08/18 09:33 Dose: 1 ea Metformin HCl (Glucophage) 250 mg PO DAILY [facility] Last Admin: 11/08/18 09:36 Dose: 250 mg Metoprolol Succinate (Toprol Xl) 50 mg PO DAILY [facility] Last Admin: 11/08/18 09:35 Dose: 50 mg Morphine Sulfate (Morphine) 2 mg IVP Q4 PRN PRN Reason: Pain, moderate (4-7) Last Admin: 11/08/18 08:00 Dose: 2 mg Pneumococcal Polyvalent Vaccine (Pneumovax 23 Vaccine) 0.5 ml IM .ONCE ONE Stop: 11/10/18 10:01 Rosuvastatin Calcium (Crestor) 5 mg PO HS [facility] Last Admin: 11/07/18 21:22 Dose: 5 mg Spironolactone (Aldactone) 25 mg PO DAILY [facility] Last Admin: 11/08/18 09:35 Dose: 25 mg Temazepam (Restoril) 15 mg PO HS PRN PRN Reason: Insomnia - Labs Labs: 11/08/18 08:19 11/06/18 12:03 PT 59.2 SECONDS (9.7-12.2) H 11/08/18 06:36 INR 5.4 H* 11/08/18 06:36 APTT 48 SECONDS (21-34) H 11/06/18 12:03
[2018-11-08 17:48] LABS: INR 4.1; PROTHROMBIN TIME 45.4 SECONDS (9.7-12.2)
--- NOTE | 2018-11-08 21:30 | CP.PCM.PN ---
Subjective - Date & Time of Evaluation Date of Evaluation: 11/08/18 Time of Evaluation: 21:29 - Subjective Subjective: dictated Objective - Vital Signs/Intake and Output Vital Signs (last 24 hours): Temp Pulse Resp BP Pulse Ox 97.7 F 76 20 127/74 96 11/08/18 16:00 11/08/18 16:00 11/08/18 16:00 11/08/18 16:00 11/08/18 16:00 Intake and Output: 11/08/18 11/09/18 18:59 06:59 Intake Total 400 Balance 400 - Medications Medications: Current Medications Albuterol/Ipratropium (Duoneb 3 Mg/0.5 Mg (3 Ml) Ud) 3 ml INH RQ6 [facility] Last Admin: 11/08/18 19:05 Dose: 3 ml Amiodarone HCl (Cordarone) 200 mg PO DAILY [facility] Last Admin: 11/08/18 09:35 Dose: 200 mg Calcium Carbonate (Oscal) 500 mg PO BID [facility] Last Admin: 11/08/18 17:42 Dose: 500 mg Enalapril Maleate (Vasotec) 10 mg PO DAILY [facility] Last Admin: 11/08/18 09:35 Dose: 10 mg Furosemide (Lasix) 40 mg PO DAILY [facility] Last Admin: 11/08/18 09:35 Dose: 40 mg Glyburide (Micronase) 1.25 mg PO DAILY [facility] Last Admin: 11/08/18 09:37 Dose: 1.25 mg Guaifenesin (Mucinex La) 600 mg PO BID [facility] Last Admin: 11/08/18 17:42 Dose: 600 mg Guaifenesin (Robitussin) 200 mg PO Q4H PRN PRN Reason: Cough and congestion Hydrochlorothiazide (Microzide) 12.5 mg PO DAILY [facility] Last Admin: 11/08/18 09:35 Dose: 12.5 mg Ceftriaxone Sodium 1 gm/ (Sodium Chloride) 100 mls @ 100 mls/hr IVPB DAILY [facility]; Protocol Last Admin: 11/08/18 09:34 Dose: 100 mls/hr Influenza Virus Vaccine (Flucelvax Quad 3252-3535 Syr) 60 mcg IM .ONCE ONE Stop: 11/10/18 10:01 Insulin Aspart (Novolog) 0 unit SC ACHS [facility]; Protocol Last Admin: 11/08/18 17:42 Dose: 1 u Lactulose (Enulose) 20 gm PO HS PRN PRN Reason: Constipation Lidocaine (Lidoderm) 1 ea TD DAILY [facility] Last Admin: 11/08/18 09:33 Dose: 1 ea Lidocaine (Lidoderm) 1 ea TD DAILY [facility] Last Admin: 11/08/18 09:33 Dose: 1 ea Metformin HCl (Glucophage) 250 mg PO DAILY [facility] Last Admin: 11/08/18 09:36 Dose: 250 mg Metoprolol Succinate (Toprol Xl) 50 mg PO DAILY [facility] Last Admin: 11/08/18 09:35 Dose: 50 mg Morphine Sulfate (Morphine) 2 mg IVP Q4 PRN PRN Reason: Pain, moderate (4-7) Last Admin: 11/08/18 08:00 Dose: 2 mg Pneumococcal Polyvalent Vaccine (Pneumovax 23 Vaccine) 0.5 ml IM .ONCE ONE Stop: 11/10/18 10:01 Rosuvastatin Calcium (Crestor) 5 mg PO HS [facility] Last Admin: 11/07/18 21:22 Dose: 5 mg Spironolactone (Aldactone) 25 mg PO DAILY [facility] Last Admin: 11/08/18 09:35 Dose: 25 mg Temazepam (Restoril) 15 mg PO HS PRN PRN Reason: Insomnia - Labs Labs: 11/08/18 08:19 11/06/18 12:03 PT 45.4 SECONDS (9.7-12.2) H D 11/08/18 17:18 INR 4.1 H* D 11/08/18 17:18 APTT 48 SECONDS (21-34) H 11/06/18 12:03
[2018-11-09] MEDS: Albuterol-Ipratrop 3 mg / 0.5 (3 ml) UD INH SCH ×4 (01:33→19:03)
--- NOTE | 2018-11-09 02:32 | PN ---
DATE: 11/08/2018 SUBJECTIVE: Ms. Pal is feeling better. She has been seen by orthopedist. She has decreased shoulder pain. She had x-ray of the shoulder done. No fever. No chills. No nausea or vomiting. She is less short of breath. PHYSICAL EXAMINATION: VITAL SIGNS: Blood pressure 127/74, pulse 79, respiratory rate 20, temperature 97.7. LUNGS: Bilateral scattered rales and rhonchi. CVS: PMI. Not localized. S1 and S2 regular. No heaves, no thrills. ABDOMEN: Soft. Nontender. Bowel sounds are positive. ASSESSMENT: 1. Pneumonia. 2. Right upper lobe mass, rule out malignancy. 3. Hypertension. 4. Congestive heart failure. 5. Type 2 diabetes. PLAN: Monitor patient. Raul Iverson MD
[2018-11-09 04:47] LABS: BASO % 0.7 % (0.0-2.0); EOS # 0.1 K/uL (0.0-0.7); EOS % 1.8 % (0.0-4.0); HEMOGLOBIN 10.9 g/dL (11.0-16.0); LYMPH # 1.1 K/uL (1.0-4.3); LYMPH % 16.7 % (20.0-40.0); MEAN CELL VOLUME 95.8 fL (81.0-99.0); MEAN CORPUSCULAR HEMOGLOBIN 30.3 pg (27.0-31.0); MEAN CORPUSCULAR HGB CONC 31.6 g/dL (33.0-37.0); MEAN PLATELET VOLUME 8.2 fL (7.2-11.7); MONO # 0.7 K/uL (0.0-0.8); MONO % 10.5 % (0.0-10.0); NEUT # 4.6 K/uL (1.8-7.0); NEUT % 70.3 % (50.0-75.0); NRBC % 0.2 % (0.0-2.0); RBC 3.6 Mil/uL (3.80-5.20); WHITE BLOOD COUNT 6.6 K/uL (4.8-10.8)
[2018-11-09 04:53] LABS: INR 1.7; PROTHROMBIN TIME 18.6 SECONDS (9.7-12.2)
[2018-11-09 05:14] LABS: CALCIUM 8.5 mg/dl (8.6-10.4)
[2018-11-09] MEDS: (Novolog) Insulin Aspart, Recombinant 100 u/ml 10 ml vial SC SCH ×4 (07:23→22:57)
[2018-11-09 07:58] LABS: INR 1.6; PROTHROMBIN TIME 17.7 SECONDS (9.7-12.2)
[2018-11-09] MEDS: metFORMIN 250 mg Tab PO SCH (10:19)
[2018-11-09] MEDS: guaiFENesin 600 mg ER Tab PO SCH ×2 (10:19→18:44)
[2018-11-09] MEDS: Metoprolol Succinate 50 mg XL Tab PO SCH (10:19)
[2018-11-09] MEDS: Lidocaine 5% Patch TD SCH ×2 (10:20)
[2018-11-09] MEDS: guaiFENesin 200 mg/10 ml Syrup UD PO PRN (10:25)
--- NOTE | 2018-11-09 14:39 | CP.PCM.PN ---
Subjective - Date & Time of Evaluation Date of Evaluation: 11/09/18 Time of Evaluation: 11:45 - Subjective Subjective: Patient seen and examined at bedside. At this time she complains of shoulder pain and persistent cough. Patient states that she has trouble breathing but experiences symptom relief after she coughs several times. Denies any fever, chills, or chest pain. Exam: General: obese, no acute distress. Heart: regular rate and rhythm, S1, S2. Lungs: CTA, bilaterally. Abdomen: soft nontender nondistended. Extremities: diffuse ecchymosis present Assessment and plan 1. coagulopathy: INR decreased to 1.6, per IR patient will undergo lung biopsy once INR reaches 1.5 Objective - Vital Signs/Intake and Output Vital Signs (last 24 hours): Temp Pulse Resp BP Pulse Ox 98.6 F 76 20 135/85 100 11/09/18 07:00 11/09/18 12:00 11/09/18 07:00 11/09/18 10:19 11/09/18 07:00 Intake and Output: 11/09/18 11/09/18 06:59 18:59 Intake Total 557 500 Balance 557 500 - Medications Medications: Current Medications Albuterol/Ipratropium (Duoneb 3 Mg/0.5 Mg (3 Ml) Ud) 3 ml INH RQ6 [facility] Last Admin: 11/09/18 13:15 Dose: 3 ml Amiodarone HCl (Cordarone) 200 mg PO DAILY [facility] Last Admin: 11/09/18 10:19 Dose: 200 mg Calcium Carbonate (Oscal) 500 mg PO BID [facility] Last Admin: 11/09/18 10:19 Dose: 500 mg Enalapril Maleate (Vasotec) 10 mg PO DAILY [facility] Last Admin: 11/09/18 10:19 Dose: 10 mg Furosemide (Lasix) 40 mg PO DAILY [facility] Last Admin: 11/09/18 10:19 Dose: 40 mg Glyburide (Micronase) 1.25 mg PO DAILY [facility] Last Admin: 11/09/18 10:20 Dose: 1.25 mg Guaifenesin (Mucinex La) 600 mg PO BID [facility] Last Admin: 11/09/18 10:19 Dose: 600 mg Guaifenesin (Robitussin) 200 mg PO Q4H PRN PRN Reason: Cough and congestion Last Admin: 11/09/18 10:25 Dose: 200 mg Hydrochlorothiazide (Microzide) 12.5 mg PO DAILY [facility] Last Admin: 11/09/18 10:19 Dose: 12.5 mg Ceftriaxone Sodium 1 gm/ (Sodium Chloride) 100 mls @ 100 mls/hr IVPB DAILY [facility]; Protocol Last Admin: 11/09/18 10:20 Dose: 100 mls/hr Influenza Virus Vaccine (Flucelvax Quad [id number] Syr) 60 mcg IM .ONCE ONE Stop: 11/10/18 10:01 Insulin Aspart (Novolog) 0 unit SC ACHS [facility]; Protocol Last Admin: 11/09/18 12:22 Dose: 2 u Lactulose (Enulose) 20 gm PO HS PRN PRN Reason: Constipation Lidocaine (Lidoderm) 1 ea TD DAILY [facility] Last Admin: 11/09/18 10:20 Dose: 1 ea Lidocaine (Lidoderm) 1 ea TD DAILY [facility] Last Admin: 11/09/18 10:20 Dose: 1 ea Metformin HCl (Glucophage) 250 mg PO DAILY [facility] Last Admin: 11/09/18 10:19 Dose: 250 mg Metoprolol Succinate (Toprol Xl) 50 mg PO DAILY [facility] Last Admin: 11/09/18 10:19 Dose: 50 mg Morphine Sulfate (Morphine) 2 mg IVP Q4 PRN PRN Reason: Pain, moderate (4-7) Last Admin: 11/08/18 22:16 Dose: 2 mg Pneumococcal Polyvalent Vaccine (Pneumovax 23 Vaccine) 0.5 ml IM .ONCE ONE Stop: 11/10/18 10:01 Rosuvastatin Calcium (Crestor) 5 mg PO HS [facility] Last Admin: 11/08/18 22:16 Dose: 5 mg Spironolactone (Aldactone) 25 mg PO DAILY [facility] Last Admin: 11/09/18 10:20 Dose: 25 mg Temazepam (Restoril) 15 mg PO HS PRN PRN Reason: Insomnia - Labs Labs: 11/09/18 04:42 11/09/18 04:42 PT 17.7 SECONDS (9.7-12.2) H 11/09/18 07:29 INR 1.6 11/09/18 07:29 APTT 48 SECONDS (21-34) H 11/06/18 12:03
--- NOTE | 2018-11-09 14:53 | CARD ---
APPROVED REPORT Date of service: 11/07/2018 INDICATION Pulmonary mass/ Evaluate Ejection Fraction PROCEDURE The above named patient recieved 24.8 millicuries of Tc99m tagged red blood cells intravenously. After achieving equilibrium, gated imaging of 16/frame/cycle was performed utillizing Gamma camera interfaced with a digital computer and gated device. Gated imaging was then performed in the left anterior oblique, anterior, and the left lateral projections. Findings Calculated LV Ejection Fraction is 30%. Normal Ejection Fraction for this facility is 55%.
--- NOTE | 2018-11-09 15:19 | CP.PCM.PN ---
Subjective - Date & Time of Evaluation Date of Evaluation: 11/09/18 Time of Evaluation: 15:16 - Subjective Subjective: Patient out of bed in chair, comfortable. States that shoulder pain is severe and the same and that the medication and patches aren't helping. Denies numbness/itingling. Review of Systems - Review of Systems All systems: reviewed and no additional remarkable complaints except - Musculoskeletal Musculoskeletal: As Par HPI - Neurological Neurological: As Per HPI Objective - Vital Signs/Intake and Output Vital Signs (last 24 hours): Temp Pulse Resp BP Pulse Ox 98.6 F 76 20 135/85 100 11/09/18 07:00 11/09/18 12:00 11/09/18 07:00 11/09/18 10:19 11/09/18 07:00 Intake and Output: 11/09/18 11/09/18 06:59 18:59 Intake Total 557 500 Balance 557 500 - Medications Medications: Current Medications Albuterol/Ipratropium (Duoneb 3 Mg/0.5 Mg (3 Ml) Ud) 3 ml INH RQ6 [facility] Last Admin: 11/09/18 13:15 Dose: 3 ml Amiodarone HCl (Cordarone) 200 mg PO DAILY [facility] Last Admin: 11/09/18 10:19 Dose: 200 mg Calcium Carbonate (Oscal) 500 mg PO BID [facility] Last Admin: 11/09/18 10:19 Dose: 500 mg Enalapril Maleate (Vasotec) 10 mg PO DAILY [facility] Last Admin: 11/09/18 10:19 Dose: 10 mg Furosemide (Lasix) 40 mg PO DAILY [facility] Last Admin: 11/09/18 10:19 Dose: 40 mg Glyburide (Micronase) 1.25 mg PO DAILY [facility] Last Admin: 11/09/18 10:20 Dose: 1.25 mg Guaifenesin (Mucinex La) 600 mg PO BID [facility] Last Admin: 11/09/18 10:19 Dose: 600 mg Guaifenesin (Robitussin) 200 mg PO Q4H PRN PRN Reason: Cough and congestion Last Admin: 11/09/18 10:25 Dose: 200 mg Hydrochlorothiazide (Microzide) 12.5 mg PO DAILY [facility] Last Admin: 11/09/18 10:19 Dose: 12.5 mg Ceftriaxone Sodium 1 gm/ (Sodium Chloride) 100 mls @ 100 mls/hr IVPB DAILY [facility]; Protocol Last Admin: 11/09/18 10:20 Dose: 100 mls/hr Influenza Virus Vaccine (Flucelvax Quad 4566-2560 Syr) 60 mcg IM .ONCE ONE Stop: 11/10/18 10:01 Insulin Aspart (Novolog) 0 unit SC ACHS [facility]; Protocol Last Admin: 11/09/18 12:22 Dose: 2 u Lactulose (Enulose) 20 gm PO HS PRN PRN Reason: Constipation Lidocaine (Lidoderm) 1 ea TD DAILY [facility] Last Admin: 11/09/18 10:20 Dose: 1 ea Lidocaine (Lidoderm) 1 ea TD DAILY [facility] Last Admin: 11/09/18 10:20 Dose: 1 ea Metformin HCl (Glucophage) 250 mg PO DAILY [facility] Last Admin: 11/09/18 10:19 Dose: 250 mg Metoprolol Succinate (Toprol Xl) 50 mg PO DAILY [facility] Last Admin: 11/09/18 10:19 Dose: 50 mg Morphine Sulfate (Morphine) 2 mg IVP Q4 PRN PRN Reason: Pain, moderate (4-7) Last Admin: 11/08/18 22:16 Dose: 2 mg Pneumococcal Polyvalent Vaccine (Pneumovax 23 Vaccine) 0.5 ml IM .ONCE ONE Stop: 11/10/18 10:01 Rosuvastatin Calcium (Crestor) 5 mg PO HS [facility] Last Admin: 11/08/18 22:16 Dose: 5 mg Spironolactone (Aldactone) 25 mg PO DAILY [facility] Last Admin: 11/09/18 10:20 Dose: 25 mg Temazepam (Restoril) 15 mg PO HS PRN PRN Reason: Insomnia - Labs Labs: 11/09/18 04:42 11/09/18 04:42 PT 17.7 SECONDS (9.7-12.2) H 11/09/18 07:29 INR 1.6 11/09/18 07:29 APTT 48 SECONDS (21-34) H 11/06/18 12:03 - Constitutional Appears: Well, No Acute Distress - Neck Exam Neck Exam: Full ROM, Normal Inspection. absent: Lymphadenopathy - Respiratory Exam Respiratory Exam: NORMAL BREATHING PATTERN - Cardiovascular Exam Additional comments: +radial pulse b - Extremities Exam Additional comments: Patient much more comfortable today. She moves her hands/wrists/elbows freely without pain. She is in no acute distress. She complains of pain with any attempts at shoulder motion. This is significant improvement from yesterday. Sensation intact - Neurological Exam Neurological Exam: Alert, Awake, Oriented x3 Neuro motor strength exam: Left Upper Extremity: 5, Right Upper Extremity: 5 (fingers/wrists/elbows, does not attempt shoulder ROM) - Psychiatric Exam Psychiatric exam: Normal Affect, Normal Mood - Skin Skin Exam: Dry, Intact, Normal Color, Warm Assessment and Plan (1) Degenerative joint disease, shoulder, right Assessment & Plan: Severe DJD of B shoulders no clinical suspicion of septic arthritis improving today clinically cont PT/OT patient indicated for total shoulder replacement based on xrays, but not a surgical candidate at this time Patient can follow up as outpatient, cont pain medication and lidoderm patches, cont PT/OT, encourage OOB d/w Dr. Chowdhury, agrees with above, call for f/u appointment [phone] Status: Acute (2) Arthritis of left glenohumeral joint Status: Acute
--- NOTE | 2018-11-09 16:36 | CP.PCM.PN ---
<BetseyDeerfield - Last Filed: 11/09/18 16:46> Subjective - Date & Time of Evaluation Date of Evaluation: 11/09/18 Time of Evaluation: 16:36 - Subjective Subjective: PGY-2 Progress Note: Dr. Yip Service Patient seen and examined at bedside. Per nursing, no acute events occurred overnight .Patient denies any fevers, chills, nausea, vomiting, chest pain, abdominal pain, or any other complaints. Objective - Vital Signs/Intake and Output Vital Signs (last 24 hours): Temp Pulse Resp BP Pulse Ox 98.6 F 76 20 135/85 100 11/09/18 07:00 11/09/18 12:00 11/09/18 07:00 11/09/18 10:19 11/09/18 07:00 Intake and Output: 11/09/18 11/09/18 06:59 18:59 Intake Total 557 500 Balance 557 500 - Medications Medications: Current Medications Albuterol/Ipratropium (Duoneb 3 Mg/0.5 Mg (3 Ml) Ud) 3 ml INH RQ6 [facility] Last Admin: 11/09/18 13:15 Dose: 3 ml Amiodarone HCl (Cordarone) 200 mg PO DAILY [facility] Last Admin: 11/09/18 10:19 Dose: 200 mg Calcium Carbonate (Oscal) 500 mg PO BID [facility] Last Admin: 11/09/18 10:19 Dose: 500 mg Enalapril Maleate (Vasotec) 10 mg PO DAILY [facility] Last Admin: 11/09/18 10:19 Dose: 10 mg Furosemide (Lasix) 40 mg PO DAILY [facility] Last Admin: 11/09/18 10:19 Dose: 40 mg Glyburide (Micronase) 1.25 mg PO DAILY [facility] Last Admin: 11/09/18 10:20 Dose: 1.25 mg Guaifenesin (Mucinex La) 600 mg PO BID [facility] Last Admin: 11/09/18 10:19 Dose: 600 mg Guaifenesin (Robitussin) 200 mg PO Q4H PRN PRN Reason: Cough and congestion Last Admin: 11/09/18 10:25 Dose: 200 mg Hydrochlorothiazide (Microzide) 12.5 mg PO DAILY [facility] Last Admin: 11/09/18 10:19 Dose: 12.5 mg Ceftriaxone Sodium 1 gm/ (Sodium Chloride) 100 mls @ 100 mls/hr IVPB DAILY [facility]; Protocol Last Admin: 11/09/18 10:20 Dose: 100 mls/hr Influenza Virus Vaccine (Flucelvax Quad 9996-4455 Syr) 60 mcg IM .ONCE ONE Stop: 11/10/18 10:01 Insulin Aspart (Novolog) 0 unit SC ACHS [facility]; Protocol Last Admin: 11/09/18 12:22 Dose: 2 u Lactulose (Enulose) 20 gm PO HS PRN PRN Reason: Constipation Lidocaine (Lidoderm) 1 ea TD DAILY [facility] Last Admin: 11/09/18 10:20 Dose: 1 ea Lidocaine (Lidoderm) 1 ea TD DAILY [facility] Last Admin: 11/09/18 10:20 Dose: 1 ea Metformin HCl (Glucophage) 250 mg PO DAILY [facility] Last Admin: 11/09/18 10:19 Dose: 250 mg Metoprolol Succinate (Toprol Xl) 50 mg PO DAILY [facility] Last Admin: 11/09/18 10:19 Dose: 50 mg Morphine Sulfate (Morphine) 2 mg IVP Q4 PRN PRN Reason: Pain, moderate (4-7) Last Admin: 11/08/18 22:16 Dose: 2 mg Pneumococcal Polyvalent Vaccine (Pneumovax 23 Vaccine) 0.5 ml IM .ONCE ONE Stop: 11/10/18 10:01 Rosuvastatin Calcium (Crestor) 5 mg PO HS [facility] Last Admin: 11/08/18 22:16 Dose: 5 mg Spironolactone (Aldactone) 25 mg PO DAILY [facility] Last Admin: 11/09/18 10:20 Dose: 25 mg Temazepam (Restoril) 15 mg PO HS PRN PRN Reason: Insomnia - Labs Labs: 11/09/18 04:42 11/09/18 04:42 PT 17.7 SECONDS (9.7-12.2) H 11/09/18 07:29 INR 1.6 11/09/18 07:29 APTT 48 SECONDS (21-34) H 11/06/18 12:03 - Head Exam Head Exam: ATRAUMATIC, NORMAL INSPECTION, NORMOCEPHALIC - Eye Exam Eye Exam: EOMI, Normal appearance, PERRL. absent: Periorbital tenderness Pupil Exam: NORMAL ACCOMODATION, PERRL - ENT Exam ENT Exam: Mucous Membranes Moist - Neck Exam Neck Exam: Normal Inspection - Respiratory Exam Respiratory Exam: Clear to Ausculation Bilateral, NORMAL BREATHING PATTERN. absent: Chest Wall Tenderness, Prolonged Expiratory Phase, Respiratory Distress - Cardiovascular Exam Cardiovascular Exam: REGULAR RHYTHM, +S1, +S2. absent: Rubs - GI/Abdominal Exam GI & Abdominal Exam: Soft, Normal Bowel Sounds - Extremities Exam Extremities Exam: Full ROM, Normal Inspection. absent: Joint Swelling, Pedal Edema - Back Exam Back Exam: NORMAL INSPECTION. absent: CVA tenderness (R), paraspinal tenderness - Neurological Exam Neurological Exam: Alert, Awake, CN II-XII Intact, Oriented x3 - Psychiatric Exam Psychiatric exam: Normal Affect, Normal Mood - Skin Skin Exam: Dry, Intact, Normal Color Assessment and Plan - Assessment and Plan (Free Text) Assessment: 78 year old female with 78 year old female with a past medical history of cerebral aneurysm, hypertension, diabetes, hypercholesterolemia, iron deficiency, and gastritis presents to the hospital with complaints of shoulder pain radiating to neck and arms. Plan: 1.CHF BNP upon admisson: 1720 MUGA scan :EF 30% Patient would benefit from Life Vest. Will reach out to [facility] for further steps. Medications: Metoprolol 50mg PO Daily Lasix 40 PO Daily Vaostec 10 mg PO Daily Spironolactone 25mg PO Daily Microzide 12.5mg PO Daily Aldactone 25mg PO Daily [facility] Rosuvastatin 5mg PO HS 2.D.M. -ISS Medications: ISS Glyburide 1.25mg PO Daily 3. Pneumonia CXR: shows Right upper lobe pneumonia Influenza vaccine given. Pneumovax 23 given. Medications: Rocephin 1gm IVPB Daily Mucinex 600mg PO BID [facility] Duoneb 3ml INH RQ6 [facility] Robutussin 200mg PO Daily Plan discussed with Attending Dr. Yip. Omar Leggett, Pgy-2 <David Yip - Last Filed: 11/09/18 21:58> Objective - Vital Signs/Intake and Output Vital Signs (last 24 hours): Temp Pulse Resp BP Pulse Ox 98.5 F 72 20 142/77 97 11/09/18 15:45 11/09/18 15:45 11/09/18 15:45 11/09/18 15:45 11/09/18 15:45 Intake and Output: 11/09/18 11/10/18 18:59 06:59 Intake Total 500 Balance 500 - Medications Medications: Current Medications Albuterol/Ipratropium (Duoneb 3 Mg/0.5 Mg (3 Ml) Ud) 3 ml INH RQ6 [facility] Last Admin: 11/09/18 19:03 Dose: 3 ml Amiodarone HCl (Cordarone) 200 mg PO DAILY [facility] Last Admin: 11/09/18 10:19 Dose: 200 mg Calcium Carbonate (Oscal) 500 mg PO BID [facility] Last Admin: 11/09/18 18:44 Dose: 500 mg Enalapril Maleate (Vasotec) 10 mg PO DAILY [facility] Last Admin: 11/09/18 10:19 Dose: 10 mg Furosemide (Lasix) 40 mg PO DAILY [facility] Last Admin: 11/09/18 10:19 Dose: 40 mg Glyburide (Micronase) 1.25 mg PO DAILY [facility] Last Admin: 11/09/18 10:20 Dose: 1.25 mg Guaifenesin (Mucinex La) 600 mg PO BID [facility] Last Admin: 11/09/18 18:44 Dose: 600 mg Guaifenesin (Robitussin) 200 mg PO Q4H PRN PRN Reason: Cough and congestion Last Admin: 11/09/18 10:25 Dose: 200 mg Hydrochlorothiazide (Microzide) 12.5 mg PO DAILY [facility] Last Admin: 11/09/18 10:19 Dose: 12.5 mg Ceftriaxone Sodium 1 gm/ (Sodium Chloride) 100 mls @ 100 mls/hr IVPB DAILY [facility]; Protocol Last Admin: 11/09/18 10:20 Dose: 100 mls/hr Influenza Virus Vaccine (Flucelvax Quad 5503-3725 Syr) 60 mcg IM .ONCE ONE Stop: 11/10/18 10:01 Insulin Aspart (Novolog) 0 unit SC ACHS [facility]; Protocol Last Admin: 11/09/18 17:30 Dose: 1 unit Lactulose (Enulose) 20 gm PO HS PRN PRN Reason: Constipation Lidocaine (Lidoderm) 1 ea TD DAILY [facility] Last Admin: 11/09/18 10:20 Dose: 1 ea Lidocaine (Lidoderm) 1 ea TD DAILY [facility] Last Admin: 11/09/18 10:20 Dose: 1 ea Metformin HCl (Glucophage) 250 mg PO DAILY [facility] Last Admin: 11/09/18 10:19 Dose: 250 mg Metoprolol Succinate (Toprol Xl) 50 mg PO DAILY [facility] Last Admin: 11/09/18 10:19 Dose: 50 mg Morphine Sulfate (Morphine) 2 mg IVP Q4 PRN PRN Reason: Pain, moderate (4-7) Last Admin: 11/09/18 18:59 Dose: 2 mg Nystatin (Nystop Topical Powder) 1 applic TOP BID [facility] Last Admin: 11/09/18 18:44 Dose: 1 applic Pneumococcal Polyvalent Vaccine (Pneumovax 23 Vaccine) 0.5 ml IM .ONCE ONE Stop: 11/10/18 10:01 Rosuvastatin Calcium (Crestor) 5 mg PO HS [facility] Last Admin: 11/08/18 22:16 Dose: 5 mg Spironolactone (Aldactone) 25 mg PO DAILY [facility] Last Admin: 11/09/18 10:20 Dose: 25 mg Temazepam (Restoril) 15 mg PO HS PRN PRN Reason: Insomnia - Labs Labs: 11/09/18 04:42 11/09/18 04:42 PT 17.7 SECONDS (9.7-12.2) H 11/09/18 07:29 INR 1.6 11/09/18 07:29 APTT 48 SECONDS (21-34) H 11/06/18 12:03 Assessment and Plan - Assessment and Plan (Free Text) Assessment: Patient examined and evaluated personally by me. Plan of care d/w the medical r esident and as documented
[2018-11-09] MEDS: Morphine 4 MG/ML VIAL IVP PRN (18:59)
--- NOTE | 2018-11-09 23:03 | CP.PCM.PN ---
Subjective - Date & Time of Evaluation Date of Evaluation: 11/09/18 Time of Evaluation: 23:03 - Subjective Subjective: dictated Objective - Vital Signs/Intake and Output Vital Signs (last 24 hours): Temp Pulse Resp BP Pulse Ox 98.5 F 72 20 142/77 97 11/09/18 15:45 11/09/18 15:45 11/09/18 15:45 11/09/18 15:45 11/09/18 15:45 Intake and Output: 11/09/18 11/10/18 18:59 06:59 Intake Total 500 Balance 500 - Medications Medications: Current Medications Albuterol/Ipratropium (Duoneb 3 Mg/0.5 Mg (3 Ml) Ud) 3 ml INH RQ6 [facility] Last Admin: 11/09/18 19:03 Dose: 3 ml Amiodarone HCl (Cordarone) 200 mg PO DAILY [facility] Last Admin: 11/09/18 10:19 Dose: 200 mg Calcium Carbonate (Oscal) 500 mg PO BID [facility] Last Admin: 11/09/18 18:44 Dose: 500 mg Enalapril Maleate (Vasotec) 10 mg PO DAILY [facility] Last Admin: 11/09/18 10:19 Dose: 10 mg Furosemide (Lasix) 40 mg PO DAILY [facility] Last Admin: 11/09/18 10:19 Dose: 40 mg Glyburide (Micronase) 1.25 mg PO DAILY [facility] Last Admin: 11/09/18 10:20 Dose: 1.25 mg Guaifenesin (Mucinex La) 600 mg PO BID [facility] Last Admin: 11/09/18 18:44 Dose: 600 mg Guaifenesin (Robitussin) 200 mg PO Q4H PRN PRN Reason: Cough and congestion Last Admin: 11/09/18 10:25 Dose: 200 mg Hydrochlorothiazide (Microzide) 12.5 mg PO DAILY [facility] Last Admin: 11/09/18 10:19 Dose: 12.5 mg Ceftriaxone Sodium 1 gm/ (Sodium Chloride) 100 mls @ 100 mls/hr IVPB DAILY [facility]; Protocol Last Admin: 11/09/18 10:20 Dose: 100 mls/hr Influenza Virus Vaccine (Flucelvax Quad 1474-4698 Syr) 60 mcg IM .ONCE ONE Stop: 11/10/18 10:01 Insulin Aspart (Novolog) 0 unit SC ACHS [facility]; Protocol Last Admin: 11/09/18 22:57 Dose: Not Given Lactulose (Enulose) 20 gm PO HS PRN PRN Reason: Constipation Lidocaine (Lidoderm) 1 ea TD DAILY [facility] Last Admin: 11/09/18 10:20 Dose: 1 ea Lidocaine (Lidoderm) 1 ea TD DAILY [facility] Last Admin: 11/09/18 10:20 Dose: 1 ea Metformin HCl (Glucophage) 250 mg PO DAILY [facility] Last Admin: 11/09/18 10:19 Dose: 250 mg Metoprolol Succinate (Toprol Xl) 50 mg PO DAILY [facility] Last Admin: 11/09/18 10:19 Dose: 50 mg Morphine Sulfate (Morphine) 2 mg IVP Q4 PRN PRN Reason: Pain, moderate (4-7) Last Admin: 11/09/18 18:59 Dose: 2 mg Nystatin (Nystop Topical Powder) 1 applic TOP BID [facility] Last Admin: 11/09/18 18:44 Dose: 1 applic Pneumococcal Polyvalent Vaccine (Pneumovax 23 Vaccine) 0.5 ml IM .ONCE ONE Stop: 11/10/18 10:01 Rosuvastatin Calcium (Crestor) 5 mg PO HS [facility] Last Admin: 11/08/18 22:16 Dose: 5 mg Spironolactone (Aldactone) 25 mg PO DAILY [facility] Last Admin: 11/09/18 10:20 Dose: 25 mg Temazepam (Restoril) 15 mg PO HS PRN PRN Reason: Insomnia - Labs Labs: 11/09/18 04:42 11/09/18 04:42 PT 17.7 SECONDS (9.7-12.2) H 11/09/18 07:29 INR 1.6 11/09/18 07:29 APTT 48 SECONDS (21-34) H 11/06/18 12:03
[2018-11-10] MEDS: Albuterol-Ipratrop 3 mg / 0.5 (3 ml) UD INH SCH ×4 (01:25→20:05)
--- NOTE | 2018-11-10 02:37 | PN ---
DATE: 11/09/2018 SUBJECTIVE: Giselle Pal is for biopsy of the lung mass in the a.m. She is afebrile. She is coughing. Occasional wheezing. She denies any chest pain but she has bilateral shoulder pain. She denies any nausea, vomiting. She wants a Sue catheter in place. I explained to her the need to avoid Sue catheter for the risk of infection and potential discharge in the near future. No nausea, vomiting. No fever. PHYSICAL EXAMINATION: VITAL SIGNS: Blood pressure 142/77, pulse 72, respiratory rate 20, temperature 98.5. LUNGS: Bilateral scattered rales. CARDIOVASCULAR SYSTEM: S1, S2 plus S3 positive. ABDOMEN: Soft, nontender. Bowel sounds are positive. ASSESSMENT: 1. Acute exacerbation of congestive heart failure. 2. Upper lobe pneumonia, rule out mass. 3. Hypertension. 4. Type 2 diabetes. PLAN: Continue antibiotics. Lung biopsy and once biopsy is done resume Coumadin. Monitor the patient. Raul Iverson MD
[2018-11-10] MEDS: (Novolog) Insulin Aspart, Recombinant 100 u/ml 10 ml vial SC SCH ×4 (06:55→23:03)
[2018-11-10 07:53] LABS: CALCIUM 9.4 mg/dl (8.6-10.4)
--- NOTE | 2018-11-10 07:54 | CP.PCM.PN ---
Subjective - Date & Time of Evaluation Date of Evaluation: 11/10/18 Time of Evaluation: 07:15 - Subjective Subjective: Patient seen and examined at bedside. Pain unchanged since yesterday. No new complaints. Objective - Vital Signs/Intake and Output Vital Signs (last 24 hours): Temp Pulse Resp BP Pulse Ox 97.5 F L 73 20 148/88 95 11/09/18 23:05 11/09/18 23:05 11/09/18 23:05 11/09/18 23:05 11/09/18 23:05 Intake and Output: 11/10/18 11/10/18 06:59 18:59 Intake Total 350 Balance 350 - Medications Medications: Current Medications Albuterol/Ipratropium (Duoneb 3 Mg/0.5 Mg (3 Ml) Ud) 3 ml INH RQ6 [facility] Last Admin: 11/10/18 01:25 Dose: Not Given Amiodarone HCl (Cordarone) 200 mg PO DAILY [facility] Last Admin: 11/09/18 10:19 Dose: 200 mg Calcium Carbonate (Oscal) 500 mg PO BID [facility] Last Admin: 11/09/18 18:44 Dose: 500 mg Enalapril Maleate (Vasotec) 10 mg PO DAILY [facility] Last Admin: 11/09/18 10:19 Dose: 10 mg Furosemide (Lasix) 40 mg PO DAILY [facility] Last Admin: 11/09/18 10:19 Dose: 40 mg Glyburide (Micronase) 1.25 mg PO DAILY [facility] Last Admin: 11/09/18 10:20 Dose: 1.25 mg Guaifenesin (Mucinex La) 600 mg PO BID [facility] Last Admin: 11/09/18 18:44 Dose: 600 mg Guaifenesin (Robitussin) 200 mg PO Q4H PRN PRN Reason: Cough and congestion Last Admin: 11/09/18 10:25 Dose: 200 mg Hydrochlorothiazide (Microzide) 12.5 mg PO DAILY [facility] Last Admin: 11/09/18 10:19 Dose: 12.5 mg Ceftriaxone Sodium 1 gm/ (Sodium Chloride) 100 mls @ 100 mls/hr IVPB DAILY [facility]; Protocol Last Admin: 11/09/18 10:20 Dose: 100 mls/hr Influenza Virus Vaccine (Flucelvax Quad [id number] Syr) 60 mcg IM .ONCE ONE Stop: 11/10/18 10:01 Insulin Aspart (Novolog) 0 unit SC ACHS [facility]; Protocol Last Admin: 11/10/18 06:55 Dose: Not Given Lactulose (Enulose) 20 gm PO HS PRN PRN Reason: Constipation Lidocaine (Lidoderm) 1 ea TD DAILY [facility] Last Admin: 11/09/18 10:20 Dose: 1 ea Lidocaine (Lidoderm) 1 ea TD DAILY [facility] Last Admin: 11/09/18 10:20 Dose: 1 ea Metformin HCl (Glucophage) 250 mg PO DAILY [facility] Last Admin: 11/09/18 10:19 Dose: 250 mg Metoprolol Succinate (Toprol Xl) 50 mg PO DAILY [facility] Last Admin: 11/09/18 10:19 Dose: 50 mg Morphine Sulfate (Morphine) 2 mg IVP Q4 PRN PRN Reason: Pain, moderate (4-7) Last Admin: 11/09/18 18:59 Dose: 2 mg Nystatin (Nystop Topical Powder) 1 applic TOP BID [facility] Last Admin: 11/09/18 18:44 Dose: 1 applic Pneumococcal Polyvalent Vaccine (Pneumovax 23 Vaccine) 0.5 ml IM .ONCE ONE Stop: 11/10/18 10:01 Rosuvastatin Calcium (Crestor) 5 mg PO HS [facility] Last Admin: 11/09/18 23:03 Dose: Not Given Spironolactone (Aldactone) 25 mg PO DAILY [facility] Last Admin: 11/09/18 10:20 Dose: 25 mg Temazepam (Restoril) 15 mg PO HS PRN PRN Reason: Insomnia - Labs Labs: 11/09/18 04:42 11/10/18 07:23 PT 17.7 SECONDS (9.7-12.2) H 11/09/18 07:29 INR 1.6 11/09/18 07:29 APTT 48 SECONDS (21-34) H 11/06/18 12:03 - Extremities Exam Additional comments: b/l shoulders: diffuse tenderness, + guarding limited ROM 2nd to pain sensation and motor intact MN/UN/RN radial pulses intact Assessment and Plan (1) Arthritis of left glenohumeral joint Assessment & Plan: -not surgical candidate at this time -pain control -PT/OT -may benefit from intra-articular steroid injection -f/u in office with Dr. Chowdhury upon dischargeabove d/w Dr. Chowdhury in agreement - Status: Acute (2) Degenerative joint disease, shoulder, right Status: Acute
[2018-11-10 07:59] LABS: INR 1.2; PROTHROMBIN TIME 13.2 SECONDS (9.7-12.2)
[2018-11-10] MEDS: Metoprolol Succinate 50 mg XL Tab PO SCH (09:24)
[2018-11-10] MEDS: guaiFENesin 600 mg ER Tab PO SCH ×2 (09:24→17:56)
[2018-11-10] MEDS: Lidocaine 5% Patch TD SCH ×2 (09:26→09:33)
[2018-11-10] MEDS ORDERED: Influenza Vaccine 60 mcg/0.5 mL SYR (4YR UP) IM ONE (10:00)
[2018-11-10] MEDS ORDERED: Pneumococcal 23-Valent Vaccine IM ONE (10:00)
--- NOTE | 2018-11-10 17:49 | CP.PCM.PN ---
Subjective - Date & Time of Evaluation Date of Evaluation: 11/10/18 Time of Evaluation: 09:20 - Subjective Subjective: Ms. Pal was seen and examined at bedside this morning. She is resting comfortably in bed in no acute distress. She reports her breathing has improved since the beginning of this admission. Currently denies any fever, chills, chest pain, n/v. No other complaints noted today. Exam: Gen: No acute distress. AAOx3 Card: RRRR, no murmurs, rubs or gallops. Lungs: Symmetric chest excursions. No tachypnea or respiratory distress noted. Clear to auscultation. No wheezing, rales or rhonchi heard. Abd: Soft, non-distended. No tenderness to palpation. A&P 1. Pneumonia, acute - Continue IV ABX - Cultures negative to date 2. Unspecified lung mass - CT chest (11/06): Right upper lobe pneumonia, with large 3.5 x 3.6cm subpleural lobular mass in the posterior right upper lobe. Additional smaller area of consolidation in the right lung base. A second 1.9cm calcified nodule noted in left lung base. Multiple areas of patchy consolidation. Chronic emphysematous pattern. IVC filter in place. Multinodular goiter noted. Cardiomegaly noted. - INR 1.2 today. Patient may proceed forward with the lung biopsy by IR 3. Osteoarthritis - Continue medical management Objective - Vital Signs/Intake and Output Vital Signs (last 24 hours): Temp Pulse Resp BP Pulse Ox 98.1 F 64 20 149/75 97 11/10/18 16:00 11/10/18 16:00 11/10/18 16:00 11/10/18 16:00 11/10/18 16:00 Intake and Output: 11/10/18 11/10/18 06:59 18:59 Intake Total 350 580 Balance 350 580 - Medications Medications: Current Medications Albuterol/Ipratropium (Duoneb 3 Mg/0.5 Mg (3 Ml) Ud) 3 ml INH RQ6 [facility] Last Admin: 11/10/18 13:24 Dose: Not Given Amiodarone HCl (Cordarone) 200 mg PO DAILY [facility] Last Admin: 11/10/18 09:23 Dose: 200 mg Calcium Carbonate (Oscal) 500 mg PO BID [facility] Last Admin: 11/10/18 09:25 Dose: 500 mg Enalapril Maleate (Vasotec) 10 mg PO DAILY [facility] Last Admin: 11/10/18 09:24 Dose: 10 mg Furosemide (Lasix) 40 mg PO DAILY [facility] Last Admin: 11/10/18 09:24 Dose: 40 mg Glyburide (Micronase) 1.25 mg PO DAILY [facility] Last Admin: 11/10/18 12:45 Dose: 1.25 mg Guaifenesin (Mucinex La) 600 mg PO BID [facility] Last Admin: 11/10/18 09:24 Dose: 600 mg Guaifenesin (Robitussin) 200 mg PO Q4H PRN PRN Reason: Cough and congestion Last Admin: 11/09/18 10:25 Dose: 200 mg Hydrochlorothiazide (Microzide) 12.5 mg PO DAILY [facility] Last Admin: 11/09/18 10:19 Dose: 12.5 mg Ceftriaxone Sodium 1 gm/ (Sodium Chloride) 100 mls @ 100 mls/hr IVPB DAILY [facility]; Protocol Last Admin: 11/10/18 09:35 Dose: 100 mls/hr Insulin Aspart (Novolog) 0 unit SC [facility]; Protocol Last Admin: 11/10/18 12:47 Dose: 2 unit Lactulose (Enulose) 20 gm PO HS PRN PRN Reason: Constipation Lidocaine (Lidoderm) 1 ea TD DAILY [facility] Last Admin: 11/10/18 09:26 Dose: 1 ea Lidocaine (Lidoderm) 1 ea TD DAILY [facility] Last Admin: 11/10/18 09:33 Dose: 1 ea Metformin HCl (Glucophage) 250 mg PO DAILY [facility] Last Admin: 11/09/18 10:19 Dose: 250 mg Metoprolol Succinate (Toprol Xl) 50 mg PO DAILY [facility] Last Admin: 11/10/18 09:24 Dose: 50 mg Nystatin (Nystop Topical Powder) 1 applic TOP BID [facility] Last Admin: 11/10/18 09:25 Dose: 1 applic Oxycodone/Acetaminophen (Percocet 5/325 Mg Tab) 2 tab PO Q4H PRN PRN Reason: Pain, severe (8-10) Stop: 11/13/18 16:58 Rosuvastatin Calcium (Crestor) 5 mg PO HS [facility] Last Admin: 11/09/18 23:03 Dose: Not Given Spironolactone (Aldactone) 25 mg PO DAILY [facility] Last Admin: 11/10/18 09:24 Dose: 25 mg Temazepam (Restoril) 15 mg PO HS PRN PRN Reason: Insomnia - Labs Labs: 11/09/18 04:42 11/10/18 07:23 PT 13.2 SECONDS (9.7-12.2) H 11/10/18 07:23 INR 1.2 11/10/18 07:23 APTT 48 SECONDS (21-34) H 11/06/18 12:03
--- NOTE | 2018-11-10 20:38 | CP.PCM.PN ---
Subjective - Date & Time of Evaluation Date of Evaluation: 11/10/18 Time of Evaluation: 08:46 - Subjective Subjective: dictated Objective - Vital Signs/Intake and Output Vital Signs (last 24 hours): Temp Pulse Resp BP Pulse Ox 98.1 F 64 20 149/75 97 11/10/18 16:00 11/10/18 16:00 11/10/18 16:00 11/10/18 16:00 11/10/18 16:00 Intake and Output: 11/10/18 11/11/18 18:59 06:59 Intake Total 580 Balance 580 - Medications Medications: Current Medications Albuterol/Ipratropium (Duoneb 3 Mg/0.5 Mg (3 Ml) Ud) 3 ml INH RQ6 [facility] Last Admin: 11/10/18 20:05 Dose: 3 ml Amiodarone HCl (Cordarone) 200 mg PO DAILY [facility] Last Admin: 11/10/18 09:23 Dose: 200 mg Calcium Carbonate (Oscal) 500 mg PO BID [facility] Last Admin: 11/10/18 17:56 Dose: 500 mg Enalapril Maleate (Vasotec) 10 mg PO DAILY [facility] Last Admin: 11/10/18 09:24 Dose: 10 mg Furosemide (Lasix) 40 mg PO DAILY [facility] Last Admin: 11/10/18 09:24 Dose: 40 mg Glyburide (Micronase) 1.25 mg PO DAILY [facility] Last Admin: 11/10/18 12:45 Dose: 1.25 mg Guaifenesin (Mucinex La) 600 mg PO BID [facility] Last Admin: 11/10/18 17:56 Dose: 600 mg Guaifenesin (Robitussin) 200 mg PO Q4H PRN PRN Reason: Cough and congestion Last Admin: 11/09/18 10:25 Dose: 200 mg Hydrochlorothiazide (Microzide) 12.5 mg PO DAILY [facility] Last Admin: 11/09/18 10:19 Dose: 12.5 mg Ceftriaxone Sodium 1 gm/ (Sodium Chloride) 100 mls @ 100 mls/hr IVPB DAILY [facility]; Protocol Last Admin: 11/10/18 09:35 Dose: 100 mls/hr Insulin Aspart (Novolog) 0 unit SC ACHS [facility]; Protocol Last Admin: 11/10/18 17:30 Dose: 4 unit Lactulose (Enulose) 20 gm PO HS PRN PRN Reason: Constipation Lidocaine (Lidoderm) 1 ea TD DAILY [facility] Last Admin: 11/10/18 09:26 Dose: 1 ea Lidocaine (Lidoderm) 1 ea TD DAILY [facility] Last Admin: 11/10/18 09:33 Dose: 1 ea Metformin HCl (Glucophage) 250 mg PO DAILY [facility] Last Admin: 11/09/18 10:19 Dose: 250 mg Metoprolol Succinate (Toprol Xl) 50 mg PO DAILY [facility] Last Admin: 11/10/18 09:24 Dose: 50 mg Nystatin (Nystop Topical Powder) 1 applic TOP BID [facility] Last Admin: 11/10/18 17:57 Dose: 1 applic Oxycodone/Acetaminophen (Percocet 5/325 Mg Tab) 2 tab PO Q4H PRN PRN Reason: Pain, severe (8-10) Stop: 11/13/18 16:58 Rosuvastatin Calcium (Crestor) 5 mg PO HS [facility] Last Admin: 11/09/18 23:03 Dose: Not Given Spironolactone (Aldactone) 25 mg PO DAILY [facility] Last Admin: 11/10/18 09:24 Dose: 25 mg Temazepam (Restoril) 15 mg PO HS PRN PRN Reason: Insomnia - Labs Labs: 11/09/18 04:42 11/10/18 07:23 PT 13.2 SECONDS (9.7-12.2) H 11/10/18 07:23 INR 1.2 11/10/18 07:23 APTT 48 SECONDS (21-34) H 11/06/18 12:03
--- NOTE | 2018-11-10 22:43 | CP.PCM.PN ---
Subjective - Date & Time of Evaluation Date of Evaluation: 11/10/18 Time of Evaluation: 17:25 - Subjective Subjective: Patient seen and examined Feels better Physical Examination - Head Exam Head Exam: ATRAUMATIC, NORMAL INSPECTION, NORMOCEPHALIC - Eye Exam Eye Exam: EOMI, Normal appearance, PERRL. absent: Periorbital tenderness Pupil Exam: NORMAL ACCOMODATION, PERRL - ENT Exam ENT Exam: Mucous Membranes Moist - Neck Exam Neck Exam: Normal Inspection - Respiratory Exam Respiratory Exam: Clear to Ausculation Bilateral, NORMAL BREATHING PATTERN. absent: Chest Wall Tenderness, Prolonged Expiratory Phase, Respiratory Distress - Cardiovascular Exam Cardiovascular Exam: REGULAR RHYTHM, +S1, +S2. absent: Rubs - GI/Abdominal Exam GI & Abdominal Exam: Soft, Normal Bowel Sounds - Extremities Exam Extremities Exam: Full ROM, Normal Inspection. absent: Joint Swelling, Pedal Edema - Back Exam Back Exam: NORMAL INSPECTION. absent: CVA tenderness (R), paraspinal tenderness - Neurological Exam Neurological Exam: Alert, Awake, CN II-XII Intact, Oriented x3 - Psychiatric Exam Psychiatric exam: Normal Affect, Normal Mood - Skin Skin Exam: Dry, Intact, Normal Color Assessment and Plan - Assessment and Plan (Free Text) Assessment: 78 year old female with 78 year old female with a past medical history of cerebral aneurysm, hypertension, diabetes, hypercholesterolemia, iron deficiency, and gastritis presents to the hospital with complaints of shoulder pain radiating to neck and arms. Plan: 1.CHF BNP upon admisson: 1720 MUGA scan :EF 30% Patient would benefit from Life Vest. Will reach out to [facility] for further steps. Medications: Metoprolol 50mg PO Daily Lasix 40 PO Daily Vaostec 10 mg PO Daily Spironolactone 25mg PO Daily Microzide 12.5mg PO Daily Aldactone 25mg PO Daily [facility] Rosuvastatin 5mg PO HS 2.D.M. -ISS Medications: ISS Glyburide 1.25mg PO Daily 3. Pneumonia CXR: shows Right upper lobe pneumonia Influenza vaccine given. Pneumovax 23 given. Medications: Rocephin 1gm IVPB Daily Mucinex 600mg PO BID [facility] Duoneb 3ml INH RQ6 [facility] Robutussin 200mg PO Daily Objective - Vital Signs/Intake and Output Vital Signs (last 24 hours): Temp Pulse Resp BP Pulse Ox 98.1 F 64 20 149/75 97 01/17/19 16:00 11/10/18 16:00 11/10/18 16:00 11/10/18 16:00 11/10/18 16:00 Intake and Output: 11/10/18 11/11/18 18:59 06:59 Intake Total 580 Balance 580 - Medications Medications: Current Medications Albuterol/Ipratropium (Duoneb 3 Mg/0.5 Mg (3 Ml) Ud) 3 ml INH RQ6 [facility] Last Admin: 11/10/18 20:05 Dose: 3 ml Amiodarone HCl (Cordarone) 200 mg PO DAILY [facility] Last Admin: 11/10/18 09:23 Dose: 200 mg Calcium Carbonate (Oscal) 500 mg PO BID [facility] Last Admin: 11/10/18 17:56 Dose: 500 mg Enalapril Maleate (Vasotec) 10 mg PO DAILY [facility] Last Admin: 11/10/18 09:24 Dose: 10 mg Furosemide (Lasix) 40 mg PO DAILY [facility] Last Admin: 11/10/18 09:24 Dose: 40 mg Glyburide (Micronase) 1.25 mg PO DAILY [facility] Last Admin: 11/10/18 12:45 Dose: 1.25 mg Guaifenesin (Mucinex La) 600 mg PO BID [facility] Last Admin: 11/10/18 17:56 Dose: 600 mg Guaifenesin (Robitussin) 200 mg PO Q4H PRN PRN Reason: Cough and congestion Last Admin: 11/09/18 10:25 Dose: 200 mg Hydrochlorothiazide (Microzide) 12.5 mg PO DAILY [facility] Last Admin: 11/09/18 10:19 Dose: 12.5 mg Ceftriaxone Sodium 1 gm/ (Sodium Chloride) 100 mls @ 100 mls/hr IVPB DAILY [facility]; Protocol Last Admin: 11/10/18 09:35 Dose: 100 mls/hr Insulin Aspart (Novolog) 0 unit SC ACHS [facility]; Protocol Last Admin: 11/10/18 17:30 Dose: 4 unit Lactulose (Enulose) 20 gm PO HS PRN PRN Reason: Constipation Lidocaine (Lidoderm) 1 ea TD DAILY [facility] Last Admin: 11/10/18 09:26 Dose: 1 ea Lidocaine (Lidoderm) 1 ea TD DAILY [facility] Last Admin: 11/10/18 09:33 Dose: 1 ea Metformin HCl (Glucophage) 250 mg PO DAILY [facility] Last Admin: 11/09/18 10:19 Dose: 250 mg Metoprolol Succinate (Toprol Xl) 50 mg PO DAILY [facility] Last Admin: 11/10/18 09:24 Dose: 50 mg Nystatin (Nystop Topical Powder) 1 applic TOP BID [facility] Last Admin: 11/10/18 17:57 Dose: 1 applic Oxycodone/Acetaminophen (Percocet 5/325 Mg Tab) 2 tab PO Q4H PRN PRN Reason: Pain, severe (8-10) Stop: 11/13/18 16:58 Rosuvastatin Calcium (Crestor) 5 mg PO HS [facility] Last Admin: 11/09/18 23:03 Dose: Not Given Spironolactone (Aldactone) 25 mg PO DAILY [facility] Last Admin: 11/10/18 09:24 Dose: 25 mg Temazepam (Restoril) 15 mg PO HS PRN PRN Reason: Insomnia - Labs Labs: 11/09/18 04:42 11/10/18 07:23 PT 13.2 SECONDS (9.7-12.2) H 11/10/18 07:23 INR 1.2 11/10/18 07:23 APTT 48 SECONDS (21-34) H 11/06/18 12:03
[2018-11-10] MEDS: Oxycodone/Acetaminophen 5/325 mg Tab PO PRN (23:01)
[2018-11-11] MEDS: Albuterol-Ipratrop 3 mg / 0.5 (3 ml) UD INH SCH ×4 (01:31→19:00)
--- NOTE | 2018-11-11 03:13 | PN ---
DATE: 11/10/2018 SUBJECTIVE: The patient, Giselle Pal, is biopsy of the lung mass. She is afebrile. She has bilateral shoulder pain. No nausea or vomiting. No chest pain. PHYSICAL EXAMINATION: VITAL SIGNS: Blood pressure 149/75, pulse 64, respiratory rate 20, temperature 98.1. LUNGS: Positive bilateral rales. CARDIOVASCULAR SYSTEM: S1 and S2 are regular. ABDOMEN: Soft. ASSESSMENT: 1. Lung mass. 2. Pneumonia. 3. Congestive heart failure. 4. Diabetes. 5. Hypertension. PLAN: Medical management. Lung biopsy. Once the patient is stable, possible discharge. Raul Iverson MD
[2018-11-11 07:49] LABS: INR 1.2; PROTHROMBIN TIME 12.6 SECONDS (9.7-12.2)
[2018-11-11] MEDS: (Novolog) Insulin Aspart, Recombinant 100 u/ml 10 ml vial SC SCH ×3 (07:53→21:56)
[2018-11-11] MEDS: Lidocaine 5% Patch TD SCH ×2 (09:45→09:47)
[2018-11-11] MEDS: guaiFENesin 600 mg ER Tab PO SCH ×2 (09:47→18:03)
[2018-11-11] MEDS: guaiFENesin 200 mg/10 ml Syrup UD PO PRN (09:49)
[2018-11-11] MEDS: Oxycodone/Acetaminophen 5/325 mg Tab PO PRN (09:49)
[2018-11-11] MEDS: Metoprolol Succinate 50 mg XL Tab PO SCH (10:03)
[2018-11-11] MEDS ORDERED: Midazolam 2 MG/2 ML VIAL ONE (10:58)
--- NOTE | 2018-11-11 13:30 | CP.PCM.PN ---
Subjective - Date & Time of Evaluation Date of Evaluation: 11/11/18 Time of Evaluation: 10:00 - Subjective Subjective: Ms. Pal was seen and examined at bedside this morning. No acute events noted overnight. She is resting comfortably seated in her chair. She states that her breathing feels fine at this point. Only complaint is her chronic arthritic pain, most notably to the bilateral shoulders. Currently denies any fever, chills, chest pain, n/v. No other complaints noted today. Exam: Gen: No acute distress. AAOx3 Card: RRRR, no murmurs, rubs or gallops. Lungs: Symmetric chest excursions. No tachypnea or respiratory distress noted. Clear to auscultation. No wheezing, rales or rhonchi heard. Abd: Soft, non-distended. No tenderness to palpation. A&P 1. Pneumonia, acute - Patient feels better and is clinically improved - Continue IV ABX - Cultures negative to date 2. Unspecified lung mass - Lung biopsy pending 3. Osteoarthritis - Continue medical management Objective - Vital Signs/Intake and Output Vital Signs (last 24 hours): Temp Pulse Resp BP Pulse Ox 98.0 F 61 20 158/80 H 96 11/11/18 07:00 11/11/18 07:00 11/11/18 07:00 11/11/18 10:02 11/11/18 07:00 Intake and Output: 11/11/18 11/11/18 06:59 18:59 Intake Total 350 Balance 350 - Medications Medications: Current Medications Albuterol/Ipratropium (Duoneb 3 Mg/0.5 Mg (3 Ml) Ud) 3 ml INH RQ6 [facility] Last Admin: 11/11/18 07:36 Dose: 3 ml Amiodarone HCl (Cordarone) 200 mg PO DAILY [facility] Last Admin: 11/11/18 09:47 Dose: 200 mg Calcium Carbonate (Oscal) 500 mg PO BID [facility] Last Admin: 11/11/18 09:47 Dose: 500 mg Enalapril Maleate (Vasotec) 10 mg PO DAILY [facility] Last Admin: 11/11/18 10:02 Dose: 10 mg Furosemide (Lasix) 40 mg PO DAILY [facility] Last Admin: 11/11/18 09:48 Dose: 40 mg Glyburide (Micronase) 1.25 mg PO DAILY [facility] Last Admin: 11/11/18 09:59 Dose: 1.25 mg Guaifenesin (Mucinex La) 600 mg PO BID [facility] Last Admin: 11/11/18 09:47 Dose: 600 mg Guaifenesin (Robitussin) 200 mg PO Q4H PRN PRN Reason: Cough and congestion Last Admin: 11/11/18 09:49 Dose: 200 mg Hydrochlorothiazide (Microzide) 12.5 mg PO DAILY [facility] Last Admin: 11/09/18 10:19 Dose: 12.5 mg Ceftriaxone Sodium 1 gm/ (Sodium Chloride) 100 mls @ 100 mls/hr IVPB DAILY [facility]; Protocol Last Admin: 11/11/18 09:52 Dose: 100 mls/hr Insulin Aspart (Novolog) 0 unit SC ACHS [facility]; Protocol Last Admin: 11/11/18 07:53 Dose: Not Given Lactulose (Enulose) 20 gm PO HS PRN PRN Reason: Constipation Lidocaine (Lidoderm) 1 ea TD DAILY [facility] Last Admin: 11/11/18 09:45 Dose: 1 ea Lidocaine (Lidoderm) 1 ea TD DAILY [facility] Last Admin: 11/11/18 09:47 Dose: 1 ea Metformin HCl (Glucophage) 250 mg PO DAILY [facility] Last Admin: 11/09/18 10:19 Dose: 250 mg Metoprolol Succinate (Toprol Xl) 50 mg PO DAILY [facility] Last Admin: 11/11/18 10:03 Dose: 50 mg Nystatin (Nystop Topical Powder) 1 applic TOP BID [facility] Last Admin: 11/11/18 09:59 Dose: 1 applic Oxycodone/Acetaminophen (Percocet 5/325 Mg Tab) 2 tab PO Q4H PRN PRN Reason: Pain, severe (8-10) Stop: 11/13/18 16:58 Last Admin: 11/11/18 09:49 Dose: 2 tab Rosuvastatin Calcium (Crestor) 5 mg PO HS [facility] Last Admin: 11/10/18 23:01 Dose: 5 mg Spironolactone (Aldactone) 25 mg PO DAILY [facility] Last Admin: 11/11/18 09:48 Dose: 25 mg Temazepam (Restoril) 15 mg PO HS PRN PRN Reason: Insomnia - Labs Labs: 11/09/18 04:42 11/10/18 07:23 PT 12.6 SECONDS (9.7-12.2) H 11/11/18 07:16 INR 1.2 11/11/18 07:16 APTT 48 SECONDS (21-34) H 11/06/18 12:03
[2018-11-11] MEDS: Enoxaparin 40 mg Syringe SC SCH (18:03)
--- NOTE | 2018-11-11 19:03 | CP.PCM.PN ---
Subjective - Date & Time of Evaluation Date of Evaluation: 11/11/18 Time of Evaluation: 20:20 - Subjective Subjective: dictated Objective - Vital Signs/Intake and Output Vital Signs (last 24 hours): Temp Pulse Resp BP Pulse Ox 98.0 F 61 20 158/80 H 96 11/11/18 07:00 11/11/18 07:00 11/11/18 07:00 11/11/18 10:02 11/11/18 07:00 - Medications Medications: Current Medications Albuterol/Ipratropium (Duoneb 3 Mg/0.5 Mg (3 Ml) Ud) 3 ml INH RQ6 [facility] Last Admin: 11/11/18 13:44 Dose: Not Given Amiodarone HCl (Cordarone) 200 mg PO DAILY [facility] Last Admin: 11/11/18 09:47 Dose: 200 mg Calcium Carbonate (Oscal) 500 mg PO BID [facility] Last Admin: 11/11/18 18:03 Dose: 500 mg Enalapril Maleate (Vasotec) 10 mg PO DAILY [facility] Last Admin: 11/11/18 10:02 Dose: 10 mg Enoxaparin Sodium (Lovenox) 40 mg SC DAILY [facility] Last Admin: 11/11/18 18:03 Dose: 40 mg Furosemide (Lasix) 40 mg PO DAILY [facility] Last Admin: 11/11/18 09:48 Dose: 40 mg Glyburide (Micronase) 1.25 mg PO DAILY [facility] Last Admin: 11/11/18 09:59 Dose: 1.25 mg Guaifenesin (Mucinex La) 600 mg PO BID [facility] Last Admin: 11/11/18 18:03 Dose: 600 mg Guaifenesin (Robitussin) 200 mg PO Q4H PRN PRN Reason: Cough and congestion Last Admin: 11/11/18 09:49 Dose: 200 mg Hydrochlorothiazide (Microzide) 12.5 mg PO DAILY [facility] Last Admin: 11/09/18 10:19 Dose: 12.5 mg Ceftriaxone Sodium 1 gm/ (Sodium Chloride) 100 mls @ 100 mls/hr IVPB DAILY [facility]; Protocol Last Admin: 11/11/18 09:52 Dose: 100 mls/hr Insulin Aspart (Novolog) 0 unit SC ACHS [facility]; Protocol Last Admin: 11/11/18 18:04 Dose: 2 unit Lactulose (Enulose) 20 gm PO HS PRN PRN Reason: Constipation Lidocaine (Lidoderm) 1 ea TD DAILY [facility] Last Admin: 11/11/18 09:45 Dose: 1 ea Lidocaine (Lidoderm) 1 ea TD DAILY [facility] Last Admin: 11/11/18 09:47 Dose: 1 ea Metformin HCl (Glucophage) 250 mg PO DAILY [facility] Last Admin: 11/09/18 10:19 Dose: 250 mg Metoprolol Succinate (Toprol Xl) 50 mg PO DAILY [facility] Last Admin: 11/11/18 10:03 Dose: 50 mg Nystatin (Nystop Topical Powder) 1 applic TOP BID [facility] Last Admin: 11/11/18 09:59 Dose: 1 applic Oxycodone/Acetaminophen (Percocet 5/325 Mg Tab) 2 tab PO Q4H PRN PRN Reason: Pain, severe (8-10) Stop: 11/13/18 16:58 Last Admin: 11/11/18 09:49 Dose: 2 tab Rosuvastatin Calcium (Crestor) 5 mg PO HS [facility] Last Admin: 11/10/18 23:01 Dose: 5 mg Spironolactone (Aldactone) 25 mg PO DAILY [facility] Last Admin: 11/11/18 09:48 Dose: 25 mg Temazepam (Restoril) 15 mg PO HS PRN PRN Reason: Insomnia - Labs Labs: 11/09/18 04:42 11/10/18 07:23 PT 12.6 SECONDS (9.7-12.2) H 11/11/18 07:16 INR 1.2 11/11/18 07:16 APTT 48 SECONDS (21-34) H 11/06/18 12:03
[2018-11-11] MEDS ORDERED: Magnesium Hydroxide Susp 30 ml UD PO PRN (20:25)
--- NOTE | 2018-11-11 20:32 | CP.PCM.PN ---
Subjective - Date & Time of Evaluation Date of Evaluation: 11/11/18 Time of Evaluation: 09:35 - Subjective Subjective: Patient seen and examined Improved breathing Physical Examination - Head Exam Head Exam: ATRAUMATIC, NORMAL INSPECTION, NORMOCEPHALIC - Eye Exam Eye Exam: EOMI, Normal appearance, PERRL. absent: Periorbital tenderness Pupil Exam: NORMAL ACCOMODATION, PERRL - ENT Exam ENT Exam: Mucous Membranes Moist - Neck Exam Neck Exam: Normal Inspection - Respiratory Exam Respiratory Exam: Clear to Ausculation Bilateral, NORMAL BREATHING PATTERN. absent: Chest Wall Tenderness, Prolonged Expiratory Phase, Respiratory Distress - Cardiovascular Exam Cardiovascular Exam: REGULAR RHYTHM, +S1, +S2. absent: Rubs - GI/Abdominal Exam GI & Abdominal Exam: Soft, Normal Bowel Sounds - Extremities Exam Extremities Exam: Full ROM, Normal Inspection. absent: Joint Swelling, Pedal Edema - Back Exam Back Exam: NORMAL INSPECTION. absent: CVA tenderness (R), paraspinal tenderness - Neurological Exam Neurological Exam: Alert, Awake, CN II-XII Intact, Oriented x3 - Psychiatric Exam Psychiatric exam: Normal Affect, Normal Mood - Skin Skin Exam: Dry, Intact, Normal Color Assessment and Plan - Assessment and Plan (Free Text) Assessment: 78 year old female with 78 year old female with a past medical history of cerebral aneurysm, hypertension, diabetes, hypercholesterolemia, iron deficiency, and gastritis presents to the hospital with complaints of shoulder p ain radiating to neck and arms. Plan: 1.CHF BNP upon admisson: 1720 MUGA scan :EF 30% Patient would benefit from Life Vest. Will reach out to [facility] for further steps. Medications: Metoprolol 50mg PO Daily Lasix 40 PO Daily Vaostec 10 mg PO Daily Spironolactone 25mg PO Daily Microzide 12.5mg PO Daily Aldactone 25mg PO Daily SABRINA Rosuvastatin 5mg PO HS 2.D.M. -ISS Medications: ISS Glyburide 1.25mg PO Daily 3. Pneumonia CXR: shows Right upper lobe pneumonia Influenza vaccine given. Pneumovax 23 given. Medications: Rocephin 1gm IVPB Daily Mucinex 600mg PO BID SABRINA Duoneb 3ml INH RQ6 SABRINA Robutussin 200mg PO Daily Objective - Vital Signs/Intake and Output Vital Signs (last 24 hours): Temp Pulse Resp BP Pulse Ox 97.9 F 57 L 20 126/64 96 11/11/18 15:00 11/11/18 15:00 11/11/18 15:00 11/11/18 15:00 11/11/18 15:00 - Medications Medications: Current Medications Albuterol/Ipratropium (Duoneb 3 Mg/0.5 Mg (3 Ml) Ud) 3 ml INH RQ6 [facility] Last Admin: 11/11/18 13:44 Dose: Not Given Amiodarone HCl (Cordarone) 200 mg PO DAILY [facility] Last Admin: 11/11/18 09:47 Dose: 200 mg Calcium Carbonate (Oscal) 500 mg PO BID [facility] Last Admin: 11/11/18 18:03 Dose: 500 mg Docusate Sodium (Colace) 100 mg PO TID [facility] Enalapril Maleate (Vasotec) 10 mg PO DAILY [facility] Last Admin: 11/11/18 10:02 Dose: 10 mg Enoxaparin Sodium (Lovenox) 40 mg SC DAILY [facility] Last Admin: 11/11/18 18:03 Dose: 40 mg Furosemide (Lasix) 40 mg PO DAILY [facility] Last Admin: 11/11/18 09:48 Dose: 40 mg Glyburide (Micronase) 1.25 mg PO DAILY [facility] Last Admin: 11/11/18 09:59 Dose: 1.25 mg Guaifenesin (Mucinex La) 600 mg PO BID [facility] Last Admin: 11/11/18 18:03 Dose: 600 mg Guaifenesin (Robitussin) 200 mg PO Q4H PRN PRN Reason: Cough and congestion Last Admin: 11/11/18 09:49 Dose: 200 mg Hydrochlorothiazide (Microzide) 12.5 mg PO DAILY [facility] Last Admin: 11/09/18 10:19 Dose: 12.5 mg Ceftriaxone Sodium 1 gm/ (Sodium Chloride) 100 mls @ 100 mls/hr IVPB DAILY [facility]; Protocol Last Admin: 11/11/18 09:52 Dose: 100 mls/hr Insulin Aspart (Novolog) 0 unit SC ACHS [facility]; Protocol Last Admin: 11/11/18 18:04 Dose: 2 unit Lactulose (Enulose) 20 gm PO HS PRN PRN Reason: Constipation Lidocaine (Lidoderm) 1 ea TD DAILY [facility] Last Admin: 11/11/18 09:45 Dose: 1 ea Lidocaine (Lidoderm) 1 ea TD DAILY [facility] Last Admin: 11/11/18 09:47 Dose: 1 ea Magnesium Hydroxide (Milk Of Magnesia) 30 ml PO DAILY PRN PRN Reason: Constipation Metformin HCl (Glucophage) 250 mg PO DAILY [facility] Last Admin: 11/09/18 10:19 Dose: 250 mg Metoprolol Succinate (Toprol Xl) 50 mg PO DAILY [facility] Last Admin: 11/11/18 10:03 Dose: 50 mg Nystatin (Nystop Topical Powder) 1 applic TOP BID [facility] Last Admin: 11/11/18 09:59 Dose: 1 applic Oxycodone/Acetaminophen (Percocet 5/325 Mg Tab) 2 tab PO Q4H PRN PRN Reason: Pain, severe (8-10) Stop: 11/13/18 16:58 Last Admin: 11/11/18 09:49 Dose: 2 tab Rosuvastatin Calcium (Crestor) 5 mg PO HS [facility] Last Admin: 11/10/18 23:01 Dose: 5 mg Spironolactone (Aldactone) 25 mg PO DAILY [facility] Last Admin: 11/11/18 09:48 Dose: 25 mg Temazepam (Restoril) 15 mg PO HS PRN PRN Reason: Insomnia - Labs Labs: 11/09/18 04:42 11/10/18 07:23 PT 12.6 SECONDS (9.7-12.2) H 11/11/18 07:16 INR 1.2 11/11/18 07:16 APTT 48 SECONDS (21-34) H 11/06/18 12:03
--- NOTE | 2018-11-12 00:25 | PN ---
DATE: 11/11/2018 SUBJECTIVE: The patient is afebrile. The patient's biopsy has been postponed due to scheduling issues. She has decreased cough. No shortness of breath. PHYSICAL EXAMINATION: VITAL SIGNS: Blood pressure 126/64, pulse 77, respiratory rate 20, and temperature 97.9. LUNGS: Positive scattered rales. CARDIOVASCULAR SYSTEM: S1, S2 plus S3 positive. ABDOMEN: Soft and nontender. Bowel sounds are positive. ASSESSMENT: 1. Pneumonia. 2. Lung mass. Pending lung biopsy. 3. Osteoarthritis. 4. Diabetes. 5. Congestive heart failure. PLAN: Medical management. Lung biopsy. Raul Iverson MD
[2018-11-12] MEDS: Albuterol-Ipratrop 3 mg / 0.5 (3 ml) UD INH SCH ×3 (01:24→13:12)
[2018-11-12] MEDS: Oxycodone/Acetaminophen 5/325 mg Tab PO PRN (02:30)
[2018-11-12 07:07] VITALS: PULSE 65; TEMP 98.6; O2SAT 96
[2018-11-12] MEDS: Metoprolol Succinate 50 mg XL Tab PO SCH (09:44)
[2018-11-12] MEDS: Enoxaparin 40 mg Syringe SC SCH (09:44)
[2018-11-12] MEDS: guaiFENesin 600 mg ER Tab PO SCH (09:44)
[2018-11-12] MEDS: Lidocaine 5% Patch TD SCH ×2 (09:46)
[2018-11-12 09:50] VITALS: BP 150/74
--- NOTE | 2018-11-12 11:14 | CP.PCM.PN ---
Subjective - Date & Time of Evaluation Date of Evaluation: 11/12/18 Time of Evaluation: 10:00 - Subjective Subjective: Patient seen and examined Sitting comfortably in no distress Cough and shortness of breath much improved Wants to go home Biopsy of the lung was not done yesterday Objective - Vital Signs/Intake and Output Vital Signs (last 24 hours): Temp Pulse Resp BP Pulse Ox 98.6 F 65 20 150/74 96 11/12/18 07:00 11/12/18 07:00 11/12/18 07:00 11/12/18 09:46 11/12/18 07:00 - Medications Medications: Current Medications Albuterol/Ipratropium (Duoneb 3 Mg/0.5 Mg (3 Ml) Ud) 3 ml INH RQ6 [facility] Last Admin: 11/12/18 07:17 Dose: Not Given Calcium Carbonate (Oscal) 500 mg PO BID [facility] Last Admin: 11/12/18 09:44 Dose: 500 mg Docusate Sodium (Colace) 100 mg PO TID [facility] Last Admin: 11/12/18 09:44 Dose: 100 mg Enalapril Maleate (Vasotec) 10 mg PO DAILY [facility] Last Admin: 11/12/18 09:44 Dose: 10 mg Enoxaparin Sodium (Lovenox) 40 mg SC DAILY [facility] Last Admin: 11/12/18 09:44 Dose: 40 mg Furosemide (Lasix) 40 mg PO DAILY [facility] Last Admin: 11/12/18 09:46 Dose: 40 mg Glyburide (Micronase) 1.25 mg PO DAILY [facility] Last Admin: 11/12/18 09:45 Dose: 1.25 mg Guaifenesin (Mucinex La) 600 mg PO BID [facility] Last Admin: 11/12/18 09:44 Dose: 600 mg Guaifenesin (Robitussin) 200 mg PO Q4H PRN PRN Reason: Cough and congestion Last Admin: 11/11/18 09:49 Dose: 200 mg Hydrochlorothiazide (Microzide) 12.5 mg PO DAILY [facility] Last Admin: 11/09/18 10:19 Dose: 12.5 mg Ceftriaxone Sodium 1 gm/ (Sodium Chloride) 100 mls @ 100 mls/hr IVPB DAILY [facility]; Protocol Last Admin: 11/11/18 09:52 Dose: 100 mls/hr Insulin Aspart (Novolog) 0 unit SC ACHS [facility]; Protocol Last Admin: 11/11/18 21:56 Dose: Not Given Lactulose (Enulose) 20 gm PO HS PRN PRN Reason: Constipation Lidocaine (Lidoderm) 1 ea TD DAILY [facility] Last Admin: 11/12/18 09:46 Dose: Not Given Lidocaine (Lidoderm) 1 ea TD DAILY [facility] Last Admin: 11/12/18 09:46 Dose: Not Given Magnesium Hydroxide (Milk Of Magnesia) 30 ml PO DAILY PRN PRN Reason: Constipation Last Admin: 11/11/18 21:56 Dose: 30 ml Metformin HCl (Glucophage) 250 mg PO DAILY [facility] Last Admin: 11/09/18 10:19 Dose: 250 mg Metoprolol Succinate (Toprol Xl) 50 mg PO DAILY [facility] Last Admin: 11/12/18 09:44 Dose: 50 mg Nystatin (Nystop Topical Powder) 1 applic TOP BID [facility] Last Admin: 11/11/18 09:59 Dose: 1 applic Oxycodone/Acetaminophen (Percocet 5/325 Mg Tab) 2 tab PO Q4H PRN PRN Reason: Pain, severe (8-10) Stop: 11/13/18 16:58 Last Admin: 11/12/18 02:30 Dose: 2 tab Rosuvastatin Calcium (Crestor) 5 mg PO HS [facility] Last Admin: 11/11/18 21:56 Dose: 5 mg Spironolactone (Aldactone) 25 mg PO DAILY [facility] Last Admin: 11/12/18 09:44 Dose: 25 mg Temazepam (Restoril) 15 mg PO HS PRN PRN Reason: Insomnia - Labs Labs: 11/09/18 04:42 11/10/18 07:23 PT 12.6 SECONDS (9.7-12.2) H 11/11/18 07:16 INR 1.2 11/11/18 07:16 APTT 48 SECONDS (21-34) H 11/06/18 12:03 - Head Exam Head Exam: ATRAUMATIC, NORMOCEPHALIC - ENT Exam ENT Exam: Mucous Membranes Moist - Neck Exam Neck Exam: Normal Inspection - Respiratory Exam Respiratory Exam: Decreased Breath Sounds - Cardiovascular Exam Cardiovascular Exam: REGULAR RHYTHM - GI/Abdominal Exam GI & Abdominal Exam: Soft, Normal Bowel Sounds Assessment and Plan (1) Pulmonary mass Assessment & Plan: Biopsy as outpatient Case discussed with cardiology and will arrange for LifeVest as possible cardiac cath as outpatient Stable from pulmonary standpoint and discharge on albuterol and p.o. antibiotics Follow-up in the office Status: Acute (2) Acute exacerbation of CHF (congestive heart failure) Status: Acute
[2018-11-12] MEDS: (Novolog) Insulin Aspart, Recombinant 100 u/ml 10 ml vial SC SCH (13:16)
--- NOTE | 2018-11-12 16:38 | PCM.HF ---
Heart Failure Core Measure - Heart Failure Ejection Fraction: Less Than 40 % (EF 35%) RUBEN Inhibitor Prescribed: Yes AnticoagulationTherapy for Atrial Fibrillation/Atrialflutter: Yes Aldosterone Antagonist Prescribed: Yes Hydralazine Nitrate Prescribed: No Contraindication/Reason for not providing: on amiodarone Implantable Cardioverter Defibrillator Therapy: No Contraindication/Reason for not providing: cardiology appointment in 1 week for lifevest Cardiac Resynchronization Therapy Prescribed: No Contraindication/Reason for not providing: not indicated - Follow up Will be discharged to: Home Follow Up Date (must be within 7 days from discharge): 11/21/18 Follow Up Time: 10:00
--- NOTE | 2018-11-12 16:45 | CP.PCM.PN ---
Objective - Vital Signs/Intake and Output Vital Signs (last 24 hours): Temp Pulse Resp BP Pulse Ox 98.6 F 65 20 150/74 96 11/12/18 07:00 11/12/18 07:00 11/12/18 07:00 11/12/18 09:46 11/12/18 07:00 Intake and Output: 11/12/18 11/12/18 06:59 18:59 Intake Total 480 Balance 480 - Medications Medications: Current Medications Albuterol/Ipratropium (Duoneb 3 Mg/0.5 Mg (3 Ml) Ud) 3 ml INH RQ6 [facility] Last Admin: 11/12/18 13:12 Dose: Not Given Calcium Carbonate (Oscal) 500 mg PO BID [facility] Last Admin: 11/12/18 09:44 Dose: 500 mg Docusate Sodium (Colace) 100 mg PO TID [facility] Last Admin: 11/12/18 13:18 Dose: Not Given Enalapril Maleate (Vasotec) 10 mg PO DAILY [facility] Last Admin: 11/12/18 09:44 Dose: 10 mg Enoxaparin Sodium (Lovenox) 40 mg SC DAILY [facility] Last Admin: 11/12/18 09:44 Dose: 40 mg Furosemide (Lasix) 40 mg PO DAILY [facility] Last Admin: 11/12/18 09:46 Dose: 40 mg Glyburide (Micronase) 1.25 mg PO DAILY [facility] Last Admin: 11/12/18 09:45 Dose: 1.25 mg Guaifenesin (Mucinex La) 600 mg PO BID [facility] Last Admin: 11/12/18 09:44 Dose: 600 mg Guaifenesin (Robitussin) 200 mg PO Q4H PRN PRN Reason: Cough and congestion Last Admin: 11/11/18 09:49 Dose: 200 mg Hydrochlorothiazide (Microzide) 12.5 mg PO DAILY [facility] Last Admin: 11/09/18 10:19 Dose: 12.5 mg Ceftriaxone Sodium 1 gm/ (Sodium Chloride) 100 mls @ 100 mls/hr IVPB DAILY [facility]; Protocol Last Admin: 11/12/18 13:17 Dose: Not Given Insulin Aspart (Novolog) 0 unit SC ACHS [facility]; Protocol Last Admin: 11/12/18 13:16 Dose: Not Given Lactulose (Enulose) 20 gm PO HS PRN PRN Reason: Constipation Lidocaine (Lidoderm) 1 ea TD DAILY [facility] Last Admin: 11/12/18 09:46 Dose: Not Given Lidocaine (Lidoderm) 1 ea TD DAILY [facility] Last Admin: 11/12/18 09:46 Dose: Not Given Magnesium Hydroxide (Milk Of Magnesia) 30 ml PO DAILY PRN PRN Reason: Constipation Last Admin: 11/11/18 21:56 Dose: 30 ml Metformin HCl (Glucophage) 250 mg PO DAILY [facility] Last Admin: 11/09/18 10:19 Dose: 250 mg Metoprolol Succinate (Toprol Xl) 50 mg PO DAILY [facility] Last Admin: 11/12/18 09:44 Dose: 50 mg Nystatin (Nystop Topical Powder) 1 applic TOP BID [facility] Last Admin: 11/12/18 09:00 Dose: Not Given Oxycodone/Acetaminophen (Percocet 5/325 Mg Tab) 2 tab PO Q4H PRN PRN Reason: Pain, severe (8-10) Stop: 11/13/18 16:58 Last Admin: 11/12/18 02:30 Dose: 2 tab Rosuvastatin Calcium (Crestor) 5 mg PO HS [facility] Last Admin: 11/11/18 21:56 Dose: 5 mg Spironolactone (Aldactone) 25 mg PO DAILY [facility] Last Admin: 11/12/18 09:44 Dose: 25 mg Temazepam (Restoril) 15 mg PO HS PRN PRN Reason: Insomnia - Labs Labs: 11/09/18 04:42 11/10/18 07:23 PT 12.6 SECONDS (9.7-12.2) H 11/11/18 07:16 INR 1.2 11/11/18 07:16 APTT 48 SECONDS (21-34) H 11/06/18 12:03 Assessment and Plan - Assessment and Plan (Free Text) Assessment: 78 year old female with multiple medical issues, seen and examined. Alert and orientedx3, denies sob or chest pains. Discussed with DR Barrios and DR Iverson, plan to discharge home today. Advised to follow up with DR Barrios and DR Yip in the office. Also to follow up with PMD in 1 week.
--- NOTE | 2018-11-12 20:53 | CP.PCM.DIS ---
Provider - Provider Date of Admission: 11/07/18 16:19 Attending physician: Raul Iverson MD Consults: 11/06/18 18:47 Pulmonology Consult Routine Comment: Consulting Provider: Art Barrios Consulting Physician: Art Barrios Reason for Consult: mass 11/06/18 18:48 Cardiology Consult Routine Comment: Consulting Provider: David Yip Consulting Physician: David Yip Reason for Consult: chf 11/07/18 03:46 Nursing Referral for Wound Care Routine Comment: Physician Instructions: Reason For Exam: Score 15 11/07/18 16:18 Orthopedic Consult Routine Comment: Consulting Provider: Martinez Chowdhury Consulting Physician: Martinez Chowdhury Reason for Consult: joint effusion b/l UE 11/07/18 18:28 Case Management Referral Routine Comment: Physician Instructions: Reason For Exam: Reason for Referral: 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 DESK PERSON Core Measures Referral Routine Comment: Physician Instructions: Reason For Exam: CHF 11/07/18 18:29 Nursing Referral for Palliative Care Routine Comment: Physician Instructions: Reason For Exam: score 4 Time Spent in preparation of Discharge (in minutes): 25 Hospital Course - Lab Results Lab Results: Micro Results 11/06/18 15:45 Blood-Venous Blood Culture - Final NO GROWTH AFTER 5 DAYS 11/06/18 15:45 Blood-Venous Gram Stain - Final TEST NOT PERFORMED 11/06/18 15:05 Blood-Venous Blood Culture - Final NO GROWTH AFTER 5 DAYS 11/06/18 15:05 Blood-Venous Gram Stain - Final TEST NOT PERFORMED Most Recent Lab Values WBC 6.6 K/uL (4.8-10.8) 11/09/18 04:42 RBC 3.60 Mil/uL (3.80-5.20) L 11/09/18 04:42 Hgb 10.9 g/dL (11.0-16.0) L 11/09/18 04:42 Hct 34.5 % (34.0-47.0) 11/09/18 04:42 MCV 95.8 fL (81.0-99.0) 11/09/18 04:42 MCH 30.3 pg (27.0-31.0) 11/09/18 04:42 MCHC 31.6 g/dL (33.0-37.0) L 11/09/18 04:42 RDW 16.0 % (11.5-14.5) H 11/09/18 04:42 Plt Count 186 K/uL (130-400) 11/09/18 04:42 MPV 8.2 fL (7.2-11.7) 11/09/18 04:42 Neut % (Auto) 70.3 % (50.0-75.0) 11/09/18 04:42 Lymph % (Auto) 16.7 % (20.0-40.0) L 11/09/18 04:42 [place] % (Auto) 10.5 % (0.0-10.0) H 11/09/18 04:42 Eos % (Auto) 1.8 % (0.0-4.0) 11/09/18 04:42 Baso % (Auto) 0.7 % (0.0-2.0) 11/09/18 04:42 Neut # (Auto) 4.6 K/uL (1.8-7.0) 11/09/18 04:42 Lymph # (Auto) 1.1 K/uL (1.0-4.3) 11/09/18 04:42 [place] # (Auto) 0.7 K/uL (0.0-0.8) 11/09/18 04:42 Eos # (Auto) 0.1 K/uL (0.0-0.7) 11/09/18 04:42 Baso # (Auto) 0.0 K/uL (0.0-0.2) 11/09/18 04:42 PT 12.6 SECONDS (9.7-12.2) H 11/11/18 07:16 INR 1.2 11/11/18 07:16 APTT 48 SECONDS (21-34) H 11/06/18 12:03 D-Dimer, Quantitative < 200 ng/mlDDU (0-243) 11/06/18 12:03 Sodium 139 mmol/L (132-148) 11/10/18 07:23 Potassium 5.0 mmol/L (3.6-5.2) 11/10/18 07:23 Chloride 107 mmol/L (98-107) 11/10/18 07:23 Carbon Dioxide 26 mmol/L (22-30) 11/10/18 07:23 Anion Gap 10 (10-20) 11/10/18 07:23 BUN 51 mg/dL (7-17) H 11/10/18 07:23 Creatinine 1.4 mg/dL (0.7-1.2) H 11/10/18 07:23 Est GFR ( Amer) 44 11/10/18 07:23 Est GFR (Non-Af Amer) 36 11/10/18 07:23 POC Glucose (mg/dL) 288 mg/dL (65-110) H 11/12/18 11:36 Random Glucose 116 mg/dL (65-105) H 11/10/18 07:23 Calcium 9.4 mg/dl (8.6-10.4) 11/10/18 07:23 Magnesium 2.2 mg/dL (1.6-2.3) 11/06/18 12:03 Total Bilirubin 0.6 mg/dL (0.2-1.3) 11/06/18 12:03 AST 18 U/L (14-36) 11/06/18 12:03 ALT 33 U/L (9-52) 11/06/18 12:03 Alkaline Phosphatase 96 U/L (38-126) 11/06/18 12:03 Total Creatine Kinase 37 U/L (30-135) 11/06/18 12:03 CK-MB (Mass) 0.45 ng/mL (0.0-3.38) 11/06/18 12:03 Troponin I 0.0250 ng/mL (0.00-0.120) 11/06/18 12:03 NT-Pro-B Natriuret Pep 1920 pg/mL (0-900) H 11/06/18 12:03 Total Protein 7.2 g/dL (6.3-8.3) 11/06/18 12:03 Albumin 4.0 g/dL (3.5-5.0) 11/06/18 12:03 Globulin 3.1 gm/dL (2.2-3.9) 11/06/18 12:03 Albumin/Globulin Ratio 1.3 (1.0-2.1) 11/06/18 12:03 Urine Color Yellow (YELLOW) 11/06/18 15:09 Urine Clarity Clear (Clear) 11/06/18 15:09 Urine pH 5.0 (5.0-8.0) 11/06/18 15:09 Ur Specific [place] 1.009 (1.003-1.030) 11/06/18 15:09 Urine Protein Negative mg/dL (NEGATIVE) 11/06/18 15:09 Urine Glucose (UA) Normal mg/dL (Normal) 11/06/18 15:09 Urine Ketones Negative mg/dL (NEGATIVE) 11/06/18 15:09 Urine Blood Negative (NEGATIVE) 11/06/18 15:09 Urine Nitrate Negative (NEGATIVE) 11/06/18 15:09 Urine Bilirubin Negative (NEGATIVE) 11/06/18 15:09 Urine Urobilinogen Normal mg/dL (0.2-1.0) 11/06/18 15:09 Ur Leukocyte Esterase Trace [place]ice/uL (Negative) 11/06/18 15:09 Urine WBC (Auto) 6 /hpf (0-5) H 11/06/18 15:09 Urine RBC (Auto) 1 /hpf (0-3) 11/06/18 15:09 Ur Squamous Epith Cells 4 /hpf (0-5) 11/06/18 15:09 Urine Bacteria Rare (<OCC) 11/06/18 15:09 Hyaline Casts 11-20 /lpf (0-2) H 11/06/18 15:09 Blood Type O POSITIVE 11/08/18 17:18 Antibody Screen Negative 11/08/18 17:18 Discharge Exam - Head Exam Head Exam: ATRAUMATIC, NORMOCEPHALIC Discharge Plan - Discharge Medications Prescriptions: Warfarin [Coumadin] 2 mg PO 1800 #30 tab - Follow Up Plan Condition: FAIR Disposition: HOME/ ROUTINE Instructions: Rheumatoid Arthritis, Heart Failure, Adult (DC), Arthritis and Exercise, Warfarin Additional Instructions: Follow up with Dr Yip in one week Continue with coumadin at home. Follow up with Dr Barrios
--- NOTE | 2018-11-13 21:32 | DS ---
DISCHARGE DIAGNOSES: 1. Pneumonia, pending etiology of lung mass, the patient needs lung biopsy. 2. Congestive heart failure. 3. Hypertension. 4. Type 2 diabetes. 5. Osteoarthritis. HISTORY OF PRESENT ILLNESS: This is a 78-year-old female morbidly obese with history of congestive heart failure, coronary artery disease, cerebral atherosclerosis, hypertension, hyperlipidemia who came in because of cough and congestion. The patient was admitted to the floor. The patient was started on diuretics, with antibiotics. Her cough, congestion and sputum started improving, she felt better. The patient's lung biopsy was postponed due to scheduling issue and the patient is being discharged as outpatient follow up with pulmonary Dr. Barrios. As the patient will have lung biopsy as an outpatient basis, condition upon discharge is stable. Her Coumadin has been resumed, the patient has received Coumadin twice already yesterday and today. PHYSICAL EXAMINATION: VITAL SIGNS: Blood pressure 150/74, pulse 65, respiratory rate 20, temperature 98.6. LABORATORY DATA: Glucose 288, 125. WBC is 8.6, hemoglobin 10.9, hematocrit 34.5, platelets 186. On coagulation profile, INR 1.2. Today chemistry, sodium 139, potassium 5, chloride 107, bicarb 23, BUN 15, creatinine 1.4. CONDITION UPON DISCHARGE: Stable. Raul Iverson MD
== END 2018-11-12 15:30 | disposition home or self-care (01) | DRG 291 ==
LOC: C.ER 10:02 → C.9E 15:57 → C.6T 21:59 → OBSVTOIN 11-07 16:19
PROVIDERS: ADMIT Internal Medicine; ATTEND Internal Medicine
PROC: 3E02340 Introduction of Influenza Vaccine into Muscle, Percutaneous Approach (ICD-10-PCS; principal; 2018-11-10)
PROC: 3E0234Z Introduction of Serum, Toxoid and Vaccine into Muscle, Percutaneous Approach (ICD-10-PCS; 2018-11-10)
DX: I13.0 Hypertensive heart and chronic kidney disease with heart failure and stage 1 through stage 4 chronic kidney disease, or unspecified chronic kidney disease (principal); J18.1 Lobar pneumonia, unspecified organism; I50.23 Acute on chronic systolic (congestive) heart failure; D68.9 Coagulation defect, unspecified; Z68.42 Body mass index [BMI] 45.0-49.9, adult; I42.0 Dilated cardiomyopathy; M19.012 Primary osteoarthritis, left shoulder; M19.011 Primary osteoarthritis, right shoulder; J43.9 Emphysema, unspecified; R91.1 Solitary pulmonary nodule; I67.2 Cerebral atherosclerosis; I25.5 Ischemic cardiomyopathy; N18.9 Chronic kidney disease, unspecified; E66.01 Morbid (severe) obesity due to excess calories; E11.22 Type 2 diabetes mellitus with diabetic chronic kidney disease; E78.00 Pure hypercholesterolemia, unspecified; G89.29 Other chronic pain; I25.10 Atherosclerotic heart disease of native coronary artery without angina pectoris; E78.5 Hyperlipidemia, unspecified; I48.91 Unspecified atrial fibrillation; E04.2 Nontoxic multinodular goiter; E61.1 Iron deficiency; Z79.84 Long term (current) use of oral hypoglycemic drugs; Z86.73 Personal history of transient ischemic attack (TIA), and cerebral infarction without residual deficits; Z95.810 Presence of automatic (implantable) cardiac defibrillator; Z87.891 Personal history of nicotine dependence; Z79.01 Long term (current) use of anticoagulants; Z23 Encounter for immunization